=== PATIENT | female | born 1940 | race Caucasian/White ===

== ENCOUNTER → 2016-06-22 | Outpatient (CLI) | payer MEDICARE ==
[~2016-06-22] MED LIST: ALBUAER3 INH; AMIO200T PO; CARD120T4 PO; CART240C4 PO; CLON.2T T-DERMAL; CLON0.1D T-DERMAL; CLON0.3D TD; DOCU1CAP39 PO; ENAL20TA PO; ENAL20TA81 PO; FURO1TAB62 PO; INSUINJ3 SQ; INSULIN PUMP; LEVA750T PO; LEVO75TA3 PO; LEVO75TA42 PO; METO100T PO; MORP1INJ45 PO; OXYC5 PO; POTA-163 PO; POTA75TA PO; SENN8.6T15 PO; SPIR50TA PO; SYMB160A INH; UMEC1AER INH; WARF-18 PO; WARF-23 PO; WARF2.5 PO
[2016-06-22 17:21] LABS: BICARBONATE 35.5 MEQ/L (21.0-32.0); POTASSIUM 3.4 MEQ/L (3.5-5.1)
== END ==
LOC: PLAB 15:18
PROVIDERS: ATTEND Internal Medicine Cardiovascular Disease
DX: I27.2 Other secondary pulmonary hypertension (principal)
CPT/HCPCS: 36415; 80048

== ENCOUNTER → 2016-07-19 | Outpatient (CLI) | payer MEDICARE ==
[2016-07-19 13:08] LABS: CREATININE RANDOM URINE LESS THAN 13 MG/DL (27-300)
[2016-07-19 13:11] LABS: HEMATOCRIT 41.2 % (35.0-46.0); MEAN CELL VOLUME 88.5 FL (80.0-100.0); MEAN CORPUSCULAR HEMOGLOBIN 29.5 PG (27.0-34.0); MEAN CORPUSCULAR HGB CONC 33.4 % (32.0-36.0); PLATELET COUNT 197 TH/MM3 (150-450); RED BLOOD COUNT 4.66 MIL/MM3 (4.00-5.30); RED CELL DISTRIBUTION WIDTH 16.5 % (11.6-17.2); REVIEW FLAG FINAL; WHITE BLOOD COUNT 4.9 TH/MM3 (4.0-11.0)
[2016-07-19 13:18] LABS: MICROALBUMIN/CREAT RATIO RAND 1000 MG/G CRE (0-30)
[2016-07-19 13:40] LABS: ANION GAP 4 MEQ/L (5-15); AST (GOT) 41 U/L (15-37); BICARBONATE 33.2 MEQ/L (21.0-32.0); BLOOD UREA NITROGEN 14 MG/DL (7-18); CHLORIDE 103 MEQ/L (98-107); GLOMERULAR FILTRATION RATE 90 ML/MIN (>89); GLUCOSE,FASTING 140 MG/DL (74-99); POTASSIUM 3.6 MEQ/L (3.5-5.1); SODIUM (NA) 140 MEQ/L (136-145)
[2016-07-19 13:46] LABS: ALKALINE PHOSPHATASE 231 U/L (45-117); ALT (GPT) 43 U/L (10-53); HDL CHOLESTEROL 115.5 MG/DL (40.0-60.0); LDL CHOLESTEROL 93 MG/DL (0-99); LDL CHOLESTEROL DIRECT 95 MG/DL (0-99); TOTAL BILIRUBIN ADULT 0.5 MG/DL (0.2-1.0)
[2016-07-19 13:52] LABS: FREE T4 1.25 NG/DL (0.76-1.46)
[2016-07-19 13:55] LABS: HEMOGLOBIN A1a 1.2 %; HEMOGLOBIN A1b 0.8 %; HEMOGLOBIN Ao 81.2 %; HEMOGLOBIN F 1.4 %; HEMOGLOBIN LA1C 2.3 %; HEMOGLOBIN P3 4.1 %
== END ==
LOC: PLAB 09:32
PROVIDERS: ATTEND Internal Medicine Endocrinology, Diabetes & Metabolism
DX: E11.65 Type 2 diabetes mellitus with hyperglycemia (principal); E03.9 Hypothyroidism, unspecified; I10 Essential (primary) hypertension; E78.5 Hyperlipidemia, unspecified
CPT/HCPCS: 36415; 80053; 80061; 82043; 83036; 83721; 84439; 84443; 85027

== ENCOUNTER → 2016-07-27 | Outpatient (CLI) | payer MEDICARE ==
[2016-07-27 14:19] LABS: CREATININE RANDOM URINE LESS THAN 13 MG/DL (27-300)
[2016-07-27 14:28] LABS: MICROALBUMIN/CREAT RATIO RAND 900 MG/G CRE (0-30)
== END ==
LOC: PLAB 10:14
PROVIDERS: ATTEND Internal Medicine
DX: E11.65 Type 2 diabetes mellitus with hyperglycemia (principal)
CPT/HCPCS: 82043

== ENCOUNTER 2016-09-05 20:35 | Inpatient (IN) | payer MEDICARE ==
[~2016-09-05] VITALS: Ht 172.7 cm; Wt 73.4 kg
[2016-09-05 20:04] VITALS: PULSE 84
[~2016-09-05 20:35] MED LIST changes: -ALBUAER3 INH; -AMIO200T PO; -CARD120T4 PO; -CLON.2T T-DERMAL; -CLON0.1D T-DERMAL; -ENAL20TA PO; -FURO1TAB62 PO; -INSUINJ3 SQ; -LEVA750T PO; -LEVO75TA3 PO; -METO100T PO; -POTA-163 PO; -POTA75TA PO; -SPIR50TA PO; -UMEC1AER INH; -WARF-18 PO; -WARF-23 PO
[2016-09-05 20:43] VITALS: BP 172/80; PULSE 108; RESP 18; TEMP 98.9; O2SAT 94
[2016-09-05] MEDS ORDERED: ENAL20TA PO (21:45)
[2016-09-05] MEDS ORDERED: WARF-18 PO (21:45)
[2016-09-05] MEDS ORDERED: LEVO75TA3 PO (21:45)
[2016-09-05] MEDS ORDERED: CLON0.1D T-DERMAL (21:45)
[2016-09-05] MEDS ORDERED: UMEC1AER INH (21:45)
[2016-09-05] MEDS ORDERED: CARD120T4 PO (21:45)
[2016-09-05] MEDS ORDERED: FURO1TAB62 PO (21:49)
[2016-09-05] MEDS ORDERED: METO100T PO (21:49)
[2016-09-05] MEDS ORDERED: POTA75TA PO (21:49)
[2016-09-05] MEDS ORDERED: ALBUAER3 INH (21:49)
[2016-09-05 21:55] VITALS: BP 165/71; PULSE 89; O2SAT 93; O2SAT 96
[2016-09-05] MEDS ORDERED: SODIUM CHLOR 0.9% 1000 ML INJ 1,000 ML IV ONE ×2 (22:19→22:49)
[2016-09-05] MEDS ORDERED: SODIUM CHLORIDE 0.9% FLUSH 10 ML FLUSH IVF PRN (22:30)
[2016-09-05] MEDS ORDERED: ONDANSETRON HCL 4 MG/2 ML VIAL IV PUSH ONE ×2 (22:30→23:30)
[2016-09-05 22:44] LABS: BASOPHIL % 0.1 % (0.0-2.0); EOSINOPHIL % 0.1 % (0.0-4.0); HEMATOCRIT 42.5 % (35.0-46.0); HEMO FLAGS DIFF FINAL; LYMPH % 10.9 % (9.0-44.0); LYMPHOCYTE # 0.6 TH/MM3 (1.0-4.8); MEAN CELL VOLUME 89.9 FL (80.0-100.0); MEAN CORPUSCULAR HEMOGLOBIN 29.2 PG (27.0-34.0); MEAN CORPUSCULAR HGB CONC 32.4 % (32.0-36.0); MONO % 15.6 % (0.0-8.0); NEUT % 73.3 % (16.0-70.0); PLATELET COUNT 152 TH/MM3 (150-450); RED BLOOD COUNT 4.73 MIL/MM3 (4.00-5.30); RED CELL DISTRIBUTION WIDTH 14.6 % (11.6-17.2); WHITE BLOOD COUNT 5.5 TH/MM3 (4.0-11.0)
--- NOTE | 2016-09-05 22:48 | PD ---
HPI Chief Complaint: GI Complaint Time Seen by Provider: 22:19 Travel History International Travel<30 days: Yes Contact w/Intl Traveler<30days: Yes ([facility]) Name of Country Traveled to: [facility] [place] Traveled to known affect area: No History of Present Illness HPI 75-year-old female presents to the emergency department for complaint of nausea vomiting and poor oral intake along with dry heaves since Tuesday evening. Patient just returned home from a cruise today. Patient states that she is diabetic and has noted that her blood sugars have been running around 240 but she is spilling ketones in her urine. Patient does use an insulin pump. Patient denies fever chills or abdominal pain. Patient's had no chest pain or shortness of breath or pleuritic pain. Patient does not report any new lower extremity pain or swelling. Patient states symptoms began after eating lobster on Tuesday evening. reports he ate the same food and was fine without any symptoms. Patient denies hematemesis coffee-ground emesis or bilious emesis. Patient also denies any change in bowel habits or diarrhea. PFSH Past Medical History Narrative Medical Diabetes COPD atrial fibrillation with warfarin therapy hypothyroidism cardiac ablation appendectomy breast augmentation hysterectomy hand surgery alcohol use ; nursing notes reviewed Hx Anticoagulant Therapy: Yes Atrial Fibrillation: Yes Cardiovascular Problems: Yes (A FIB) COPD: Yes Diabetes: Yes (insulin pump) Patient Takes Glucophage: No Diminished Hearing: No Endocrine: Yes Genitourinary: No Hiatal Hernia: No Hypertension: Yes Immune Disorder: No Medical other: Yes (pt use oxygen at home 2lts hs.) Musculoskeletal: No Neurologic: No Reproductive: No Respiratory: No Thyroid Disease: Yes Menopausal: Yes Past Surgical History Appendectomy: Yes Cardiac Surgery: Yes (ablasion a fib) Gynecologic Surgery: Yes (BREAST AUGMENTATION) Hysterectomy: Yes Tonsillectomy: Yes Other Surgery: Yes (NUMEROUS HAND SURGERIES FOR TRIGGER FINGER - BILAT. SHOULDER SURGERIES ) Social History Alcohol Use: Yes (WINE DAILY) Tobacco Use: No (never) Substance Use: No Allergies-Medications (Allergen,Severity, Reaction): Coded Allergies: Aspirin (Verified Allergy, Severe, SWELLING OF THE FACE, 09/05/16) Ambien (Verified Allergy, Intermediate, Confusion, 09/05/16) Ticlid (Verified Allergy, Intermediate, CELLULITIS, 09/05/16) Reported Meds & Prescriptions Reported Meds & Active Scripts Active Reported Proair Hfa 8.5 GM Inh (Albuterol Sulfate) 90 Mcg/Act Aer 2 Puff INH Q4-6H PRN 108 mcg/actuation Metoprolol Tartrate 100 Mg Tab 100 Mg PO BID Lasix (Furosemide) 20 Mg Tab 20 Mg PO DAILY Potassium 75 Mg Tab 20 Meq PO Warfarin 2.5 Mg Tab 2.5 Mg PO DAILY Levothyroxine (Levothyroxine Sodium) 75 Mcg Tab 75 Mcg PO DAILY Enalapril (Enalapril Maleate) 20 Mg Tab 20 Mg PO DAILY Cardizem (Diltiazem HCl) 120 Mg Tab 240 Mg PO BID Anoro Ellipta Inh (Umeclidinium/Vilanterol) 62.5-25 Mcg/Act Aero 1 Puff INH DAILY Clonidine 168 HR Patch (Clonidine HCl) 0.1 Mg/24 Hr Patch 1 Patch T-DERMAL Q7D [Insulin Pump] Review of Systems Except as stated in HPI: all other systems reviewed are Neg General / Constitutional: No: Fever, Chills HENT: No: Congestion Cardiovascular: No: Chest Pain or Discomfort Respiratory: No: Shortness of Breath Gastrointestinal: Positive: Nausea, Vomiting, No: Diarrhea, Abdominal Pain Genitourinary: No: Dysuria, Flank Pain Musculoskeletal: No: Myalgias Skin: No Rash Neurologic: No: Weakness Psychiatric: No: Anxiety Endocrine: No: Heat Intolerance Hematologic/Lymphatic: No: Easy Bruising Physical Exam Narrative GENERAL: Well-developed well-nourished female in no acute distress no respiratory distress SKIN: Warm and dry. HEAD: Normocephalic. EYES: No scleral icterus. No injection or drainage. NECK: Supple, trachea midline. No JVD or lymphadenopathy. CARDIOVASCULAR: Regular rate and rhythm without murmurs, gallops, or rubs. RESPIRATORY: Breath sounds equal bilaterally. No accessory muscle use. GASTROINTESTINAL: Abdomen soft, non-tender, nondistended. MUSCULOSKELETAL: No cyanosis, or edema. BACK: Nontender without obvious deformity. No CVA tenderness. Data Data Last Documented VS Vital Signs Date Time Temp Pulse Resp B/P Pulse Ox O2 Delivery O2 Flow Rate FiO2 09/06/16 00:18 96 Nasal Cannula 2.00 09/05/16 21:55 89 165/71 09/05/16 20:43 98.9 18 Orders Electrocardiogram (09/05/16 22:19) Complete Blood Count With Diff (09/05/16 22:19) Comprehensive Metabolic Panel (09/05/16 22:19) Magnesium (Mg) (09/05/16 22:19) Beta Hydroxybutyrate (Acetone) (09/05/16 22:19) Lactic Acid (09/05/16 22:19) Urinalysis - C+S If Indicated (09/05/16 22:19) Chest, Single Ap (09/05/16 22:19) Blood Glucose (09/05/16 22:19) Ecg Monitoring (09/05/16 22:19) Iv Access Insert/Monitor (09/05/16 22:19) Oximetry (09/05/16 22:19) NPO (09/05/16 22:19) Sodium Chlor 0.9% 1000 Ml Inj (Ns 1000 M (09/05/16 22:19) Sodium Chlor 0.9% 1000 Ml Inj (Ns 1000 M (09/05/16 22:49) Sodium Chloride 0.9% Flush (Ns Flush) (09/05/16 22:30) Troponin I (09/05/16 22:19) Lipase (09/05/16 22:19) Ondansetron Inj (Zofran Inj) (09/05/16 22:30) Prothrombin Time / Inr (Pt) (09/05/16 23:21) Potassium Chloride (Kcl) (09/05/16 23:30) Ondansetron Inj (Zofran Inj) (09/05/16 23:30) Potassium Chlor 10 Meq Premix (Kcl 10 Me (09/05/16 23:30) Albuterol-Ipratropium Neb (Duoneb Neb) (09/06/16 00:15) Furosemide Inj (Lasix Inj) (09/06/16 00:15) Metoclopramide Inj (Reglan Inj) (09/06/16 00:15) Enalapril (Vasotec) (09/06/16 00:15) Warfarin (Coumadin) (09/06/16 00:15) Admit Order (Ed Use Only) (09/06/16 ) ^ Saline Lock (09/06/16 00:25) Resp Oxygen Nicholas C Titrat 1-4 L (09/06/16 ) ^ Notify Dr: Other (09/06/16 00:25) Sodium Chloride 0.9% Flush (Ns Flush) (09/06/16 09:00) Sodium Chloride 0.9% Flush (Ns Flush) (09/06/16 00:30) Labs Laboratory Tests Test 09/05/16 21:55 White Blood Count 5.5 TH/MM3 Red Blood Count 4.73 MIL/MM3 Hemoglobin 13.8 GM/DL Hematocrit 42.5 % Mean Corpuscular Volume 89.9 FL Mean Corpuscular Hemoglobin 29.2 PG Mean Corpuscular Hemoglobin 32.4 % Concent Red Cell Distribution Width 14.6 % Platelet Count 152 TH/MM3 Mean Platelet Volume 8.1 FL Neutrophils (%) (Auto) 73.3 % Lymphocytes (%) (Auto) 10.9 % Monocytes (%) (Auto) 15.6 % Eosinophils (%) (Auto) 0.1 % Basophils (%) (Auto) 0.1 % Neutrophils # (Auto) 4.0 TH/MM3 Lymphocytes # (Auto) 0.6 TH/MM3 Monocytes # (Auto) 0.9 TH/MM3 Eosinophils # (Auto) 0.0 TH/MM3 Basophils # (Auto) 0.0 TH/MM3 CBC Comment DIFF FINAL Differential Comment Prothrombin Time 18.8 SEC Prothromb Time International 1.7 RATIO Ratio Sodium Level 135 MEQ/L Potassium Level 3.0 MEQ/L Chloride Level 93 MEQ/L Carbon Dioxide Level 31.5 MEQ/L Anion Gap 11 MEQ/L Blood Urea Nitrogen 12 MG/DL Creatinine 0.69 MG/DL Estimat Glomerular Filtration 83 ML/MIN Rate Random Glucose 233 MG/DL Lactic Acid Level 1.4 mmol/L Calcium Level 8.4 MG/DL Magnesium Level 1.4 MG/DL Total Bilirubin 0.8 MG/DL Aspartate Amino Transf 37 U/L (AST/SGOT) Alanine Aminotransferase 58 U/L (ALT/SGPT) Alkaline Phosphatase 356 U/L Troponin I 0.02 NG/ML Total Protein 6.6 GM/DL Albumin 3.1 GM/DL Lipase 54 U/L B-Hydroxybutyrate 0.95 MMOL/L MDM Medical Decision Making Medical Screen Exam Complete: Yes Emergency Medical Condition: Yes Medical Record Reviewed: Yes Interpretation(s) EKG atrial fibrillation rate [address] elevation or injury pattern change QS septally age-indeterminate. Last Impressions Chest X-Ray 09/05/16 0453 Signed Impressions: Service Date/Time: Monday, September 05, 2016 22:40 - CONCLUSION: Congestive heart failure with bilateral pleural effusions, left greater than right. Otis West MD CBC & BMP Diagram 09/05/16 21:55 Differential Diagnosis Dehydration, DKA, electrolyte disturbance, gastroenteritis, food borne illness, ACS, [place], pancreatitis, cholecystitis Narrative Course Patient placed on monitor IV access obtained specimens collected and sent for resulting EKG ordered which showed patient to be in atrial fibrillation with controlled ventricular rate no acute ST elevation; IV fluids administered 1 L bolus x 2 along with Zofran 4 mg IV Patient continues to complain of nausea after Zofran 4 mg IV additional Zofran administered; CBC is automated differential values grossly in normal range except for by automated differential 73% neutrophils and a monocytosis Chemistries remarkable for hypokalemia of 3.0 mild hypomagnesemia 1.4 and mild hypocalcemia of 8.4 with normal bicarbonate and anion gap and be in a creatinine random glucose 233; waiting for urinalysis and beta hydroxybutyric acid will reassess blood sugar after IV fluid hydration. Patient ordered to have oral potassium replacement 40 mEq along with supplemental IV potassium replacement 10 mEq every hour 3 LFTs resulted and patient identified to have elevated alkaline phosphatase Troponin I is 0.02, not elevated Patient reassessed lung sounds clear but review of chest x-ray reveals vascular congestion and left pleural effusion; has been reports patient has had pleural effusions and has had undergo thoracentesis and pleurodesis. Patient reports no complaint of shortness of breath but typically requires supplemental oxygen at night for her sleep apnea 2 L/m. After review of chest x-ray with basket congestion; Lasix 40 mg IV administered. Patient also given evening medications Coumadin 5 mg and enalapril 20 mg by mouth. Patient administered DuoNeb updraft 1 as patient reports occasional wheezing. Critical Care Narrative Aggregate critical care time was 40 minutes. Time to perform other separately billable procedures was not included in the critical care time. My time did not include minutes spent treating any other patients simultaneously or on activities that did not directly contribute to the patient's treatment. The services I provided to this patient were to treat and/or prevent clinically significant deterioration that could result in: DKA, arrhythmia, cardiopulmonary arrest, I provided critical care services requiring my management, as noted below: Chart data review, documentation time, medication orders and management, vital sign assessments/reviewing monitor data, ordering and reviewing lab tests, ordering and interpreting/reviewing x-rays and diagnostic studies, care of the patient and discussion of the patient with the admitting physicians. Physician Communication Physician Communication call placed to [facility] service for admission case discussed with Dr Gomez for admission Diagnosis Primary Impression: Vomiting Qualified Code: R11.2 - Non-intractable vomiting with nausea, unspecified vomiting type Additional Impressions: Diabetes CHF (congestive heart failure) Admitting Information Admitting Physician Requests: Admit Tiffanie Rios MD Sep 05, 2016 22:48
--- NOTE | 2016-09-05 22:51 | RADHPO ---
EXAM DATE/TIME: 09/05/2016 22:40 [facility] COMPARISON: No previous studies available for comparison. INDICATIONS : Shortness of breath with nausea. MEDICAL HISTORY : A fib. Hypertension. Chronic obstructive pulmonary disease. thyroid disease, diabetes. SURGICAL HISTORY : None. ENCOUNTER: Initial ACUITY: 1 day PAIN SCORE: 0/10 LOCATION: Bilateral chest FINDINGS: Heart size is mildly enlarged. There is a mild edema pattern with bilateral pleural effusions, left g reater than right and probable basilar atelectasis. No pneumothorax. CONCLUSION: Congestive heart failure with bilateral pleural effusions, left greater than right. Otis West MD on September 05, 2016 at 22:49 Board Certified Radiologist. This report was verified electronically.
[2016-09-05 22:59] LABS: CHLORIDE 93 MEQ/L (98-107); SODIUM (NA) 135 MEQ/L (136-145)
[2016-09-05 23:02] LABS: ANION GAP 11 MEQ/L (5-15); BICARBONATE 31.5 MEQ/L (21.0-32.0); BLOOD UREA NITROGEN 12 MG/DL (7-18); MAGNESIUM 1.4 MG/DL (1.5-2.5)
[2016-09-05 23:05] LABS: ALT (GPT) 58 U/L (10-53); AST (GOT) 37 U/L (15-37); GLOMERULAR FILTRATION RATE 83 ML/MIN (>89)
[2016-09-05 23:06] LABS: TOTAL BILIRUBIN ADULT 0.8 MG/DL (0.2-1.0)
[2016-09-05 23:08] LABS: ALKALINE PHOSPHATASE 356 U/L (45-117)
[2016-09-05 23:18] LABS: BETA-HYDROXYBUTYRATE 0.95 MMOL/L (0.00-0.39)
[2016-09-05] MEDS ORDERED: POTASSIUM CHLORIDE 20 MEQ CONTROLLED RELEASE TAB PO ONE (23:30)
[2016-09-05] MEDS: POTASSIUM CHLOR 10 MEQ PREMIX 100 ML IV SCH (23:43)
[2016-09-05 23:46] LABS: INTERNATIONAL NORMALIZED RATIO 1.7 RATIO; PROTHROMBIN TIME - PATIENT 18.8 SEC (9.8-11.6)
[2016-09-06] VITALS (12 sets, daily range): BP systolic 131–196; BP diastolic 55–105; PULSE 84–135; RESP 16–20; TEMP 98.5–100.8; O2SAT 73–97
[2016-09-06] MEDS ORDERED: WARFARIN SOD 5 MG TAB PO ONE (00:15)
[2016-09-06] MEDS ORDERED: METOCLOPRAMIDE HCL 10 MG/2 ML VIAL IV PUSH ONE (00:15)
[2016-09-06] MEDS ORDERED: RESP: ALBUTEROL 2.5 MG/IPRATROPIUM 0.5 MG NEB (SCH) NEB ONE (00:15)
[2016-09-06] MEDS ORDERED: FUROSEMIDE 40 MG/4 ML VIAL IV PUSH ONE (00:15)
[2016-09-06] MEDS ORDERED: ENALAPRIL MALEATE 10 MG TAB PO ONE (00:15)
[2016-09-06] MEDS ORDERED: SODIUM CHLORIDE 0.9% FLUSH 10 ML FLUSH IVF PRN (00:30)
[2016-09-06 00:45] LABS: BLOOD, URINE TRACE (NEG); GLUCOSE,URINE 100 mg/dL (NEG); KETONE, URINE 15 mg/dL (NEG); NITRITE,URINE NEG (NEG)
[2016-09-06] MEDS: POTASSIUM CHLOR 10 MEQ PREMIX 100 ML IV SCH ×2 (00:46→02:00)
[2016-09-06 00:51] LABS: HYALINE CAST, URINE 0-2 /lpf (RARE); MUCUS URINE FEW /lpf (OCC); SQUAMOUS EPITHELIAL CELL URINE 0-5 /hpf (0-5); URINE COLOR YELLOW (YELLW/STRAW)
[2016-09-06 00:52] LABS: BACTERIA, URINE FEW /hpf; COMMENT (UR) CULT NOT INDICATED; CULTURE IF INDICATED CULT NOT INDICATED; WBC, URINE 0-2 /hpf (0-5)
[2016-09-06] MEDS ORDERED: DEXTROSE 50% IN WATER 50 ML VIAL(D50) IV PUSH PRN (01:00)
[2016-09-06] MEDS ORDERED: BISACODYL 10 MG SUPP PR PRN (01:00)
[2016-09-06] MEDS ORDERED: SODIUM CHLORIDE 0.9% FLUSH 10 ML FLUSH IV FLUSH PRN (01:00)
[2016-09-06] MEDS ORDERED: GLUCAGON 1 MG/ML VIAL OTHER PRN (01:00)
[2016-09-06] MEDS: LEVOTHYROXINE SODIUM 75 MCG TAB PO SCH (05:10)
[2016-09-06] MEDS ORDERED: INSULIN ASPART SUPPLEMENTAL SCALE SQ SCH (07:00)
[2016-09-06] MEDS: METOPROLOL TARTRATE 100 MG TAB PO SCH ×2 (08:47→19:44)
[2016-09-06] MEDS: SODIUM CHLORIDE 0.9% FLUSH 10 ML FLUSH IV FLUSH SCH ×2 (08:48→19:38)
[2016-09-06] MEDS: DILTIAZEM-CD 240 MG CAP ER PO SCH (08:48)
[2016-09-06] MEDS: ENALAPRIL MALEATE 10 MG TAB PO SCH (08:48)
[2016-09-06] MEDS ORDERED: SODIUM CHLORIDE 0.9% FLUSH 10 ML FLUSH IV FLUSH SCH (09:00)
[2016-09-06] MEDS ORDERED: FUROSEMIDE 20 MG TAB PO SCH (09:00)
[2016-09-06 10:18] LABS: BICARBONATE 32.2 MEQ/L (21.0-32.0); MAGNESIUM 1.3 MG/DL (1.5-2.5)
[2016-09-06] MEDS: ONDANSETRON HCL 4 MG/2 ML VIAL IVP PRN (10:44)
--- NOTE | 2016-09-06 14:42 | HHI.HP ---
HPI Service [facility] Primary Care Physician Yu Pavon MD Admission Diagnosis Uncontrolled DM; CHF; AFib Diagnoses: Chief Complaint: Decreased appetite Nausea/vomiting/dry heaves Elevated blood sugar Travel History International Travel<30 Days: No Contact w/Intl Traveler <30 Da: [place] Traveled to: [facility] Traveled to Known Affected Are: No History of Present Illness This is a 75-year-old female with past medical history significant for insulin dependent diabetes, atrial fibrillation, pulmonary hypertension, hypothyroidism and POLO on night time oxygen who presents to [facility] ED with complaints of poor oral intake, nausea, vomiting and dry heaves for 2 days. Patient states that her symptoms began shortly after she ate lobster while she was on a cruise Tuesday evening. She denies any blood or bile in the vomitus. She states her had the same meal and has not been ill. She reports associated shortness of breath. She denies any chest pain or abdominal pain. She states that her blood sugars have been running high for her around 240 and she has been spilling ketones in her urine. She does utilize insulin pump. Patient denies any diarrhea or constipation. In the ED, patient's BP is elevated 172/80, temp 98.9 and HR 108. White count is well within normal limits at 5.5. She has hypokalemia and hypomagnesemia. Her blood sugar was 219. Review of Systems Except as stated in HPI: all other systems reviewed are Neg (10 point review of systems completed and all pertinent stated in history of present illness) Past Family Social History Past Medical History Insulin-dependent diabetes managed with a pain pump Atrial fibrillation, on Coumadin Pulmonary hypertension History of cellulitis POLO, on nighttime oxygen Hypertension Hypothyroidism Past Surgical History Appendectomy Cardiac ablation 2 Hysterectomy Breast augmentation bilateral shoulder surgery Hand surgery Tonsillectomy Reported Medications Proair Hfa 8.5 GM Inh (Albuterol Sulfate) 90 Mcg/Act Aer 2 Puff INH Q4-6H PRN 108 mcg/actuation Metoprolol Tartrate 100 Mg Tab 100 Mg PO BID Lasix (Furosemide) 20 Mg Tab 20 Mg PO DAILY Potassium 75 Mg Tab 20 Meq PO Warfarin 2.5 Mg Tab 2.5 Mg PO DAILY Levothyroxine (Levothyroxine Sodium) 75 Mcg Tab 75 Mcg PO DAILY Enalapril (Enalapril Maleate) 20 Mg Tab 20 Mg PO DAILY Cardizem (Diltiazem HCl) 120 Mg Tab 240 Mg PO BID Anoro Ellipta Inh (Umeclidinium/Vilanterol) 62.5-25 Mcg/Act Aero 1 Puff INH DAILY Clonidine 168 HR Patch (Clonidine HCl) 0.1 Mg/24 Hr Patch 1 Patch T-DERMAL Q7D [Insulin Pump] Allergies: Coded Allergies: Aspirin (Verified Allergy, Severe, SWELLING OF THE FACE, 09/05/16) Ambien (Verified Allergy, Intermediate, Confusion, 09/05/16) Ticlid (Verified Allergy, Intermediate, CELLULITIS, 09/05/16) Active Ordered Medications Current Medications Medications (Trade) Dose Ordered Sig/Jose Juan Route Start Time Stop Time Status Last Admin (D50w (Vial) Inj) 25 ml UNSCH PRN IV PUSH 09/06/16 01:00 (Glucagon Inj) 1 mg UNSCH PRN OTHER 09/06/16 01:00 (NS Flush) 2 ml UNSCH PRN IV FLUSH 09/06/16 01:00 (NS Flush) 2 ml BID IV FLUSH 09/06/16 09:00 09/06/16 08:48 (Zofran Inj) 4 mg Q6H PRN IVP 09/06/16 01:00 09/06/16 10:44 (Dulcolax Supp) 10 mg DAILY PRN AR 09/06/16 01:00 (Tylenol) 650 mg Q6H PRN PO 09/06/16 01:00 ([place] 5-325 Mg) 1 tab Q4H PRN PO 09/06/16 01:00 ([place] 10-325 Mg) 1 tab Q4H PRN PO 09/06/16 01:00 (Vasotec) 20 mg DAILY PO 09/06/16 09:00 09/06/16 08:48 (Lasix) 20 mg DAILY PO 09/06/16 09:00 09/06/16 08:47 (Synthroid) 75 mcg DAILY@0600 PO 09/06/16 06:00 09/06/16 05:10 (Lopressor) 100 mg BID PO 09/06/16 09:00 09/06/16 08:47 (Coumadin) 2.5 mg DAILY@1600 PO 09/06/16 16:00 (Cardizem Cd) 480 mg DAILY PO 09/06/16 09:00 09/06/16 08:48 (Coumadin Booklet) 1 ONCE ONCE XX 09/06/16 16:00 09/06/16 16:01 Family History Family medical history significant for hypertension and diabetes Social History Patient denies any tobacco use Admits to wine daily Denies any illicit drug use Physical Exam Vital Signs Vital Signs Date Time Temp Pulse Resp B/P Pulse Ox O2 Delivery O2 Flow Rate FiO2 09/06/16 12:00 100.8 97 20 157/80 90 09/06/16 08:55 100.2 135 20 172/92 73 09/06/16 08:45 126 16 188/105 97 09/06/16 07:00 98.6 120 16 196/105 97 Room Air 09/06/16 07:00 16 09/06/16 05:11 95 181/96 97 Nasal Cannula 2 09/06/16 00:50 107 148/81 94 Nasal Cannula 2 09/06/16 00:18 96 Nasal Cannula 2.00 09/06/16 00:06 95 Nasal Cannula 2 09/05/16 21:55 89 165/71 96 Room Air 09/05/16 21:55 93 Room Air 09/05/16 20:43 98.9 108 18 172/80 94 Physical Exam GENERAL: This is a well-nourished, well-developed patient, in no apparent distress. SKIN: No rashes, ecchymoses or lesions. Cool and dry. HEAD: Atraumatic. Normocephalic. No temporal or scalp tenderness. EYES: Pupils equal round and reactive. Extraocular motions intact. No scleral icterus. No injection or drainage. ENT: Nose without bleeding, purulent drainage or septal hematoma. Throat without erythema, tonsillar hypertrophy or exudate. Uvula midline. Airway patent. NECK: Trachea midline. No JVD or lymphadenopathy. Supple, nontender, no meningeal signs. CARDIOVASCULAR: Regular rate and rhythm without murmurs, gallops, or rubs. RESPIRATORY: Clear to auscultation. Breath sounds equal bilaterally. No wheezes , rales, or rhonchi. GASTROINTESTINAL: Abdomen soft, non-tender, nondistended. No hepato-splenomegaly , or palpable masses. No guarding. MUSCULOSKELETAL: Extremities without clubbing, cyanosis, or edema. No joint tenderness, effusion, or edema noted. No calf tenderness. Negative Homans sign bilaterally. NEUROLOGICAL: Awake and alert. Cranial nerves II through XII intact. Motor and sensory grossly within normal limits. Five out of 5 muscle strength in all muscle groups. Normal speech. Laboratory Laboratory Tests Test 09/05/16 09/06/16 09/06/16 09/06/16 21:55 00:35 09:28 12:15 White Blood Count 5.5 Red Blood Count 4.73 Hemoglobin 13.8 Hematocrit 42.5 Mean Corpuscular Volume 89.9 Mean Corpuscular Hemoglobin 29.2 Mean Corpuscular Hemoglobin 32.4 Concent Red Cell Distribution Width 14.6 Platelet Count 152 Mean Platelet Volume 8.1 Neutrophils (%) (Auto) 73.3 Lymphocytes (%) (Auto) 10.9 Monocytes (%) (Auto) 15.6 Eosinophils (%) (Auto) 0.1 Basophils (%) (Auto) 0.1 Neutrophils # (Auto) 4.0 Lymphocytes # (Auto) 0.6 Monocytes # (Auto) 0.9 Eosinophils # (Auto) 0.0 Basophils # (Auto) 0.0 CBC Comment DIFF FINAL Differential Comment Prothrombin Time 18.8 Prothromb Time International 1.7 Ratio Sodium Level 135 138 Potassium Level 3.0 3.0 Chloride Level 93 95 Carbon Dioxide Level 31.5 32.2 Anion Gap 11 11 Blood Urea Nitrogen 12 9 Creatinine 0.69 0.59 Estimat Glomerular Filtration 83 99 Rate Random Glucose 233 225 Lactic Acid Level 1.4 Calcium Level 8.4 7.6 Magnesium Level 1.4 1.3 Total Bilirubin 0.8 Aspartate Amino Transf 37 (AST/SGOT) Alanine Aminotransferase 58 (ALT/SGPT) Alkaline Phosphatase 356 Troponin I 0.02 0.03 0.05 Total Protein 6.6 Albumin 3.1 Lipase 54 B-Hydroxybutyrate 0.95 Urine Color YELLOW Urine Turbidity CLEAR Urine pH 6.0 Urine Specific [place] 1.016 Urine Protein 100 Urine Glucose (UA) 100 Urine Ketones 15 Urine Occult Blood TRACE Urine Nitrite NEG Urine Bilirubin NEG Urine Leukocyte Esterase NEG Urine RBC 4-9 Urine WBC 0-2 Urine Squamous Epithelial 0-5 Cells Urine Bacteria FEW Urine Hyaline Casts 0-2 Urine Mucus FEW Microscopic Urinalysis Comment CULT NOT INDICATED Result Diagram: 09/05/165 09/06/16 0928 Imaging Last 48 hours Impressions Chest X-Ray 09/05/169 Signed Impressions: Service Date/Time: Monday, September 05, 2016 22:40 - CONCLUSION: Congestive heart failure with bilateral pleural effusions, left greater than right. Otis West MD Assessment and Plan Assessment and Plan 75-year-old female with past medical history significant for insulin dependent diabetes, atrial fibrillation, pulmonary hypertension, hypothyroidism and POLO on night time oxygen who presents to [facility] ED with complaints of poor oral intake, nausea, vomiting and dry heaves for 2 days. Suspected gastroenteritis - fluids given in ED - improved since presentation - Diet ordered. Will monitor how patient tolerates and adjust accordingly - IV zofran prn CHF exacerbation in patient with h/o pulmonary HTN - CXR personally interpreted revealing findings c/w CHF and bilateral pleural effusions - hold home Lasix. IV Lasix 20mg BID - monitor electrolytes - monitor for e/o fluid overload - strict I&Os - daily weights - Na/fluid restrictions Atrial fibrillation - rate controlled - resume home Warfarin and Diltiazem - monitor PT/INR - pharmacy dosing requested - monitor on telemetry Hypertension - resume home medications - monitor BP - adjust treatment as indicated Electrolyte imbalance - K 3.0, Mag 1.3 - replenish potassium and magnesium - am labs to monitor response IDDM - patient will continue with her insulin pump - accuchecks - ISS - patient to manage with pump COPD - resume home bronchodilators - Duonebs prn - supplemental oxygen Hypothyroidism - resume home Levothyroxine - obtain TSH level DVT prophylaxis - resume home Coumadin Written by Alexandra Liz PA-C acting as scribe for Dr. Lindquist on 09/06/16 at 10:25. All or portions of this note were transcribed by scribe Alexandra Liz PA-C. I, Dr. Francisco Javier Lindquist personally performed the history, physical exam, and medical decision making; and confirmed the accuracy of the information in the transcribed note. Authenticated by Dr. Francisco Javier Lindquist on 09/06/16 at 15:08. Alexandra Liz Sep 06, 2016 14:42 Francisco Javier Lindquist MD Sep 06, 2016 15:08
[2016-09-06] MEDS ORDERED: POTASSIUM CHLORIDE INJ 20 MEQ in SODIUM CHLOR 0.9% 1000 ML INJ 1,000 ML IV SCH (15:00)
[2016-09-06] MEDS ORDERED: SODIUM CHLOR 0.9% 1000 ML INJ 1,000 ML IV SCH (15:00)
[2016-09-06] MEDS ORDERED: POTASSIUM CHLORIDE 20 MEQ CONTROLLED RELEASE TAB PO ONE (15:00)
[2016-09-06] MEDS ORDERED: WARFARIN SOD 2.5 MG TAB PO SCH (16:00)
[2016-09-06] MEDS ORDERED: WARFARIN SOD 2.5 MG TAB PO ONE (16:00)
[2016-09-06] MEDS: FUROSEMIDE 20 MG/2 ML VIAL IV PUSH SCH ×2 (16:06→16:41)
[2016-09-06] MEDS: MAGNESIUM SULFATE 1 GM PREMIX 100 ML IV SCH ×2 (16:08→16:41)
[2016-09-06] MEDS: UMECLIDINIUM 62.5 MCG/VILANTEROL 25 MCG INHALER INH SCH (16:41)
[2016-09-06] MEDS ORDERED: POTASSIUM CHLORIDE 10 MEQ CONTROLLED RELEASE TAB PO ONE (18:30)
[2016-09-06] MEDS: ACETAMINOPHEN/HYDROcodone 325 MG/10 MG TAB PO PRN (19:45)
[2016-09-06] MEDS: RESP: ALBUTEROL 2.5 MG/IPRATROPIUM 0.5 MG NEB (PRN) NEB (21:18)
[2016-09-07] VITALS (9 sets, daily range): BP systolic 115–131; BP diastolic 59–75; PULSE 66–91; RESP 16–20; TEMP 97.2–100; O2SAT 91–98
[2016-09-07] MEDS: LEVOTHYROXINE SODIUM 75 MCG TAB PO SCH (06:17)
[2016-09-07 06:20] LABS: BASOPHIL % 0.1 % (0.0-2.0); HEMATOCRIT 40.2 % (35.0-46.0); HEMO FLAGS DIFF FINAL; LYMPH % 20.7 % (9.0-44.0); MEAN CELL VOLUME 89.4 FL (80.0-100.0); MEAN CORPUSCULAR HEMOGLOBIN 29.4 PG (27.0-34.0); MEAN CORPUSCULAR HGB CONC 32.8 % (32.0-36.0); MONO % 16.8 % (0.0-8.0); NEUT % 62.4 % (16.0-70.0); PLATELET COUNT 140 TH/MM3 (150-450); RED BLOOD COUNT 4.49 MIL/MM3 (4.00-5.30); RED CELL DISTRIBUTION WIDTH 14.3 % (11.6-17.2); WHITE BLOOD COUNT 4.9 TH/MM3 (4.0-11.0)
[2016-09-07 06:31] LABS: CHLORIDE 92 MEQ/L (98-107); POTASSIUM 3.5 MEQ/L (3.5-5.1); SODIUM (NA) 134 MEQ/L (136-145)
[2016-09-07 06:33] LABS: INTERNATIONAL NORMALIZED RATIO 2.9 RATIO; PROTHROMBIN TIME - PATIENT 33.2 SEC (9.8-11.6)
[2016-09-07 06:39] LABS: ANION GAP 10 MEQ/L (5-15); BLOOD UREA NITROGEN 15 MG/DL (7-18); MAGNESIUM 1.9 MG/DL (1.5-2.5)
[2016-09-07 06:40] LABS: ALT (GPT) 41 U/L (10-53); AST (GOT) 38 U/L (15-37)
[2016-09-07 06:42] LABS: TOTAL BILIRUBIN ADULT 0.4 MG/DL (0.2-1.0)
[2016-09-07 06:43] LABS: ALKALINE PHOSPHATASE 276 U/L (45-117); GLOMERULAR FILTRATION RATE 97 ML/MIN (>89)
[2016-09-07] MEDS: SODIUM CHLORIDE 0.9% FLUSH 10 ML FLUSH IV FLUSH SCH ×2 (09:00→21:00)
[2016-09-07] MEDS: UMECLIDINIUM 62.5 MCG/VILANTEROL 25 MCG INHALER INH SCH (09:01)
[2016-09-07] MEDS: METOPROLOL TARTRATE 100 MG TAB PO SCH ×2 (09:02→22:07)
[2016-09-07] MEDS: ENALAPRIL MALEATE 10 MG TAB PO SCH (09:02)
[2016-09-07] MEDS: FUROSEMIDE 20 MG/2 ML VIAL IV PUSH SCH ×2 (09:02→18:50)
[2016-09-07] MEDS: DILTIAZEM-CD 240 MG CAP ER PO SCH (09:02)
[2016-09-07] MEDS: RESP: ALBUTEROL 2.5 MG/IPRATROPIUM 0.5 MG NEB (PRN) NEB ×2 (10:14→20:21)
[2016-09-07] MEDS: POTASSIUM CHLORIDE 20 MEQ CONTROLLED RELEASE TAB PO SCH (12:37)
--- NOTE | 2016-09-07 12:42 | HHI.PR ---
Subjective Remarks Follow-up on patient with suspected gastroenteritis and CHF exacerbation. Patient reports that she is breathing better today. Able to tolerate a diet. No chest pain, abdominal pain or nausea or vomiting. Complains of cough. Objective Vitals Vital Signs Date Time Temp Pulse Resp B/P Pulse Ox O2 Delivery O2 Flow Rate FiO2 09/07/16 12:00 97.8 79 17 120/72 98 09/07/16 10:19 95 Nasal Cannula 2.00 09/07/16 08:00 97.2 66 18 115/65 92 09/07/16 04:00 98.4 86 18 131/71 91 09/07/16 00:00 100.0 75 16 121/73 93 09/06/16 20:45 18 09/06/16 20:25 94 Nasal Cannula 2.00 09/06/16 20:04 84 09/06/16 20:00 99.3 97 20 157/95 94 09/06/16 16:15 98.5 96 20 143/92 90 I/O 09/06/16 09/06/16 09/06/16 09/07/16 09/07/16 09/07/16 07:00 15:00 23:00 07:00 15:00 23:00 Intake Total 2300 ml 570 ml 420 ml 640 ml Output Total 100 ml Balance 2200 ml 570 ml 420 ml 640 ml Intake Oral 570 ml 420 ml 640 ml IV Total 2300 ml Output Urine Total 100 ml # Voids 1 3 1 2 # Bowel Movements 0 0 Result Diagram: 09/07/16 0515 09/07/16 0515 A/P Assessment and Plan 75-year-old female with past medical history significant for insulin dependent diabetes, atrial fibrillation, pulmonary hypertension, hypothyroidism and POLO on night time oxygen who presents to [facility] ED with complaints of poor oral intake, nausea, vomiting and dry heaves for 2 days. Suspected gastroenteritis - improved - tolerating diet - no further episodes of nausea/vomiting - IV zofran prn CHF exacerbation in patient with h/o pulmonary HTN - CXR personally interpreted revealing findings c/w CHF and bilateral pleural effusions, left greater than right - Continue IV Lasix 20mg BID - monitor electrolytes - monitor for e/o fluid overload - strict I&Os - daily weights - Na/fluid restrictions - Potassium 20meq daily - Echocardiogram ordered - no official report but large pleural effusion seen on exam by tech. Patient will likely benefit from ultrasound guided thoracocentesis but INR 2.9 today. Hold Coumadin. Recheck PT/INR in am. Will follow up on report once it is available. Atrial fibrillation - rate controlled - continue home Diltiazem - hold Coumadin for now for possible upcoming IR procedure - monitor on telemetry Hypertension - BP well controlled - continue home medications - monitor BP - adjust treatment as indicated Electrolyte imbalance - improved - K 3.05, Mag 1.9 - Continue to monitor IDDM - patient will continue with her insulin pump - accuchecks - ISS - patient to manage with pump - blood sugars fairly well controlled COPD - continue home bronchodilators - Duonebs prn - supplemental oxygen. Currently on 95% on 2LNC Hypothyroidism - continue home Levothyroxine - TSH level 0.644 DVT prophylaxis - home Coumadin on hold - SCD/MELVIN hose - up with PT Written by Alexandra Liz PA-C acting as scribe for Dr. Lindquist on 09/07/16 at 10:02. All or portions of this note were transcribed by scribe Alexandra Liz PA-C. I, Dr. Francisco Javier Lindquist personally performed the history, physical exam, and medical decision making; and confirmed the accuracy of the information in the transcribed note. Authenticated by Dr. Francisco Javier Lindquist on 09/07/16 at 14:45. Alexandra Liz Sep 07, 2016 12:42 Francisco Javier Lindquist MD Sep 07, 2016 14:45
--- NOTE | 2016-09-07 12:53 | EKG ---
Date Performed: 09/05/2016 Time Performed: 22:30:36 PTAGE: 75 years EKG: Atrial fibrillation. Poor R wave progression - probable normal variant Anterolateral ST-T c hanges are nonspecific Abnormal ECG Compared to prior tracing no significant change DOCTOR: John Rob Interpretating Date/Time 09/07/2016 12:51:00
--- NOTE | 2016-09-07 13:13 | EC ---
Study Study Date:09/07/2016 STUDY CONCLUSIONS SUMMARY - Left ventricle: The cavity size was normal. Wall thickness was normal. Systolic function was normal. The estimated ejection fraction was in the range of 50% to 55%. Wall motion was normal; there were no regional wall motion abnormalities. - Mitral valve: Mild to moderate regurgitation. - Tricuspid valve: Moderate-severe regurgitation. - Pulmonary arteries: PA peak pressure: 77mm Hg (S). If LV function is below 40, please consider prescribing an ACEI or ARB or document rationale for non-use. PROCEDURE DATA STUDY STATUS: Elective. Procedure: Transthoracic echocardiography. Image quality was good. Scanning was performed from the parasternal, apical, and subcostal acoustic windows. Study completion: The patient tolerated the procedure well. Transthoracic echocardiography. M-mode, complete 2D, complete spectral Doppler, and color Doppler. Patient status: Inpatient. CARDIAC ANATOMY LEFT VENTRICLE: The cavity size was normal. Wall thickness was normal. Systolic function was normal. The estimated ejection fraction was in the range of 50% to 55%. Wall motion was normal; there were no regional wall motion abnormalities. AORTIC VALVE: Trileaflet; mildly thickened, mildly calcified leaflets. Doppler: Transvalvular velocity was within the normal range. There was no stenosis. No regurgitation. AORTA: Aortic root: The aortic root was normal in size. MITRAL VALVE: Structurally normal valve. Doppler: Transvalvular velocity was within the normal range. There was no evidence for stenosis. Mild to moderate regurgitation. Valve area by pressure half-time: 2.82cm^2. LEFT ATRIUM: The atrium was normal in size. RIGHT VENTRICLE: The cavity size was normal. Wall thickness was normal. PULMONIC VALVE: Doppler: Transvalvular velocity was within the normal range. There was no evidence for stenosis. No regurgitation. TRICUSPID VALVE: Structurally normal valve. Doppler: Transvalvular velocity was within the normal range. Moderate-severe regurgitation. PULMONARY ARTERY: The main pulmonary artery was normal-sized. Systolic pressure was within the normal range. RIGHT ATRIUM: The atrium was normal in size. PERICARDIUM: There was no pericardial effusion. SYSTEMIC VEINS: Inferior vena cava: The vessel was normal in size. BASIC MEASUREMENTS ADULT Normal Left ventricle LV internal dimension, ED, chordal level, *38.1 mm 43-52 PLAX LV internal dimension, ES, chordal level, 29.5 mm 23-38 PLAX Fractional shortening, chordal level, PLAX *23 % >29 LV posterior wall thickness, ED 10.3 mm IVS/LVPW ratio, ED 1.15 <1.3 Ventricular septum Septal thickness, ED 11.8 mm Aortic valve Leaflet separation 16 mm 15-26 Right ventricle RV internal dimension, ED, PLAX 33 mm 19-38 BASIC MEASUREMENTS ADULT Normal Aortic valve Leaflet separation 16 mm 15-26 Aorta Root diameter, ED 28 mm 20-37 Left atrium Anterior-posterior dimension, ES 33 mm 19-40 LA/aortic root ratio 1.18 DOPPLER MEASUREMENTS ADULT Normal Main pulmonary artery Pressure, S *77 mm Hg =30 Mitral valve Pressure half-time 78 ms Valve area, pressure half-time 2.82 cm^2 Tricuspid valve Regurgitant peak velocity 408 cm/s Peak RV-RA gradient, S 67 mm Hg Maximal regurgitant velocity 408 cm/s Systemic veins Estimated CVP 10 mm Hg Right ventricle RV pressure, S *77 mm Hg <30 LEGEND: Mean values are shown as u=mean value. Asterisk (*) ibarra values outside specified normal range. Prepared and signed by Darin Villalobos [id number]
[2016-09-08] VITALS (9 sets, daily range): BP systolic 114–162; BP diastolic 61–83; PULSE 58–134; RESP 18–21; TEMP 97.5–99.5; O2SAT 90–100
[2016-09-08] MEDS: LEVOTHYROXINE SODIUM 75 MCG TAB PO SCH (06:15)
[2016-09-08 06:58] LABS: INTERNATIONAL NORMALIZED RATIO 3.8 RATIO; POTASSIUM 3.7 MEQ/L (3.5-5.1); PROTHROMBIN TIME - PATIENT 45.1 SEC (9.8-11.6)
[2016-09-08 07:03] LABS: BICARBONATE 30.8 MEQ/L (21.0-32.0); MAGNESIUM 1.8 MG/DL (1.5-2.5)
[2016-09-08] MEDS: METOPROLOL TARTRATE 100 MG TAB PO SCH ×2 (08:53→22:27)
[2016-09-08] MEDS: FUROSEMIDE 20 MG/2 ML VIAL IV PUSH SCH ×2 (08:53→17:26)
[2016-09-08] MEDS: POTASSIUM CHLORIDE 20 MEQ CONTROLLED RELEASE TAB PO SCH (08:54)
[2016-09-08] MEDS: ENALAPRIL MALEATE 10 MG TAB PO SCH (08:54)
[2016-09-08] MEDS: DILTIAZEM-CD 240 MG CAP ER PO SCH (08:54)
[2016-09-08] MEDS: UMECLIDINIUM 62.5 MCG/VILANTEROL 25 MCG INHALER INH SCH (08:55)
[2016-09-08] MEDS: SODIUM CHLORIDE 0.9% FLUSH 10 ML FLUSH IV FLUSH SCH ×2 (08:55→22:27)
--- NOTE | 2016-09-08 16:00 | HHI.PR ---
Subjective Remarks Follow-up gastroenteritis, fluid overload. Still reporting shortness of breath, cough. No chest pain. Objective Vitals Vital Signs Date Time Temp Pulse Resp B/P Pulse Ox O2 Delivery O2 Flow Rate FiO2 09/08/16 12:00 98.3 58 20 114/66 100 09/08/16 08:00 98.3 87 21 147/73 93 09/08/16 04:00 98.9 81 20 144/73 91 09/08/16 02:55 134 09/08/16 00:00 99.2 72 20 120/70 90 09/07/16 20:20 94 Nasal Cannula 3.00 09/07/16 20:03 91 09/07/16 20:00 99.6 76 20 129/59 94 09/07/16 16:00 98.2 74 18 115/75 92 I/O 09/07/16 09/07/16 09/07/16 09/08/16 09/08/16 09/08/16 07:00 15:00 23:00 07:00 15:00 23:00 Intake Total 640 ml 120 ml 60 ml 0 ml Output Total 150 ml 200 ml Balance 640 ml -30 ml -140 ml 0 ml Intake Oral 640 ml 120 ml 60 ml IV Total 0 ml 0 ml Output Urine Total 150 ml 200 ml # Voids 2 # Bowel Movements 0 0 0 Result Diagram: 09/07/16 0515 09/08/16 0545 Imaging Last Impressions Chest X-Ray 09/05/162218 Signed Impressions: Service Date/Time: Monday, September 05, 2016 22:40 - CONCLUSION: Congestive heart failure with bilateral pleural effusions, left greater than right. Otis West MD Objective Remarks General: No acute distress. Sitting up in a chair. Heart: Regular rate and rhythm. No murmur. Lungs: Bilateral crackles are noted. Breathing is nonlabored. Abdomen: Soft, nontender, nondistended. Extremities: No lower extremity edema. Psych: Alert and oriented. Procedures None Urinary Catheter: No Vascular Central Line Catheter: No A/P Assessment and Plan 1. Gastroenteritis: Improved. Patient is now tolerating her diet. Nausea and vomiting have resolved. Zofran available as needed. 2. CHF exacerbation, likely diastolic: Patient has history of pulmonary hypertension. Chest x-ray shows fluid overload with bilateral pleural effusions , left greater than right. Continue Lasix. Strict intake/output. Echocardiogram shows ejection fraction 55-60% with no regional wall motion abnormalities. There is moderate to severe tricuspid regurgitation. 3. Pleural effusion: May need thoracentesis. INR is supratherapeutic. Coumadin is on hold. Consider interventional radiology consult when INR is decreased. 4. Atrial fibrillation: Currently rate controlled. Continue diltiazem. Coumadin on hold. Monitor on telemetry. 5. Hypertension: Blood pressure is well controlled. Continue home medications. 6. Insulin-dependent diabetes mellitus: Patient has an insulin pump, which provides basal and sliding scale NovoLog. Monitor Accu-Cheks. 7. COPD: Continue bronchodilators. DuoNeb as needed. Continue supplemental oxygen. 8. Hypothyroidism: Continue Synthroid. 9. DVT prophylaxis: Coumadin on hold. INR is supratherapeutic. No reported bleeding. Francisco Javier Lindquist MD Sep 08, 2016 16:00
--- NOTE | 2016-09-08 17:58 | RADHPO ---
EXAM DATE/TIME: 09/08/2016 17:12 [facility] COMPARISON: CHEST SINGLE AP, September 05, 2016, 22:40. INDICATIONS : Shortness of breath MEDICAL HISTORY : A fib. Hypertension. Chronic obstructive pulmonary disease. thyroid disease, diabetes. SURGICAL HISTORY : None. ENCOUNTER: Subsequent ACUITY: 4 - 6 days PAIN SCORE: 0/10 LOCATION: Bilateral chest FINDINGS: A single view of the chest demonstrates diffuse increased interstitial markings. Persistent and enlar ging bilateral pleural effusions with concomitant atelectatic changes. Heart size is prominent. [place] us structures are intact. CONCLUSION: Worsening CHF. Karan Simmons MD on September 08, 2016 at 17:55 Board Certified Radiologist. This report was verified electronically.
[2016-09-08] MEDS: RESP: ALBUTEROL 2.5 MG/IPRATROPIUM 0.5 MG NEB (PRN) NEB ×2 (19:37→23:23)
[2016-09-08] MEDS: ACETAMINOPHEN 325 MG TAB PO PRN (22:38)
[2016-09-09] VITALS (10 sets, daily range): BP systolic 99–161; BP diastolic 52–91; PULSE 71–100; RESP 18–21; TEMP 96–100.1; O2SAT 90–98
[2016-09-09] MEDS: BENZONATATE 100 MG CAP PO PRN ×3 (00:58→21:27)
[2016-09-09] MEDS: ACETAMINOPHEN/HYDROcodone 325 MG/10 MG TAB PO PRN (03:06)
[2016-09-09] MEDS: RESP: ALBUTEROL 2.5 MG/IPRATROPIUM 0.5 MG NEB (PRN) NEB ×3 (04:56→14:51)
[2016-09-09 07:07] LABS: POTASSIUM 3.5 MEQ/L (3.5-5.1)
[2016-09-09] MEDS: ACETAMINOPHEN/HYDROcodone 325 MG/5 MG TAB PO PRN ×2 (07:10→21:27)
[2016-09-09] MEDS: LEVOTHYROXINE SODIUM 75 MCG TAB PO SCH (07:10)
[2016-09-09 07:12] LABS: BICARBONATE 30.9 MEQ/L (21.0-32.0); PROTHROMBIN TIME - PATIENT 46.5 SEC (9.8-11.6)
[2016-09-09] MEDS: SODIUM CHLORIDE 0.9% FLUSH 10 ML FLUSH IV FLUSH SCH ×2 (09:00→21:23)
[2016-09-09] MEDS: UMECLIDINIUM 62.5 MCG/VILANTEROL 25 MCG INHALER INH SCH (09:34)
[2016-09-09] MEDS: ENALAPRIL MALEATE 10 MG TAB PO SCH (09:36)
[2016-09-09] MEDS: POTASSIUM CHLORIDE 20 MEQ CONTROLLED RELEASE TAB PO SCH (09:36)
[2016-09-09] MEDS: DILTIAZEM-CD 240 MG CAP ER PO SCH (09:36)
[2016-09-09] MEDS: FUROSEMIDE 20 MG/2 ML VIAL IV PUSH SCH ×2 (09:36→21:22)
[2016-09-09] MEDS: METOPROLOL TARTRATE 100 MG TAB PO SCH ×2 (09:36→21:22)
[2016-09-09] MEDS: ACETAMINOPHEN 325 MG TAB PO PRN (09:37)
--- NOTE | 2016-09-09 15:18 | HHI.PR ---
Subjective Remarks The patient states she does not feel improved. She feels she is getting weaker. She states she still has cough but it is improving. The patient denies dyspnea however she has been increased to 4 L nasal cannula. She states she is followed by sanitation engineer Dr. Estrella for sleep apnea and was recently placed on oxygen via nasal cannula at night. The patient's floor installer is Dr. Jackson and she states she has been on Coumadin for 7 years with him managing those levels. The patient also states that she has previous history of left- sided rib fractures with thoracentesis, recurrent pleural effusion followed by pleurodesis. The patient at this time does not want me to consult another sanitation engineer as she feels comfortable with Dr. Estrella. She is agreeable to proceeding with chest CT. The patient states that occasionally Dr. Estrella treats her with Zaroxolyn as well. She has not noticed any increase in pedal edema. Objective Vitals Vital Signs Date Time Temp Pulse Resp B/P Pulse Ox O2 Delivery O2 Flow Rate FiO2 09/09/16 12:00 97.8 76 20 120/66 92 09/09/16 10:35 92 High Flow Nasal Cannula 4.00 09/09/16 08:00 100.1 91 20 161/78 93 09/09/16 04:00 99.7 75 19 126/76 90 09/09/16 00:00 96.0 73 19 109/58 93 09/08/16 20:00 99.5 125 20 162/83 93 09/08/16 19:55 93 Nasal Cannula 4.00 09/08/16 19:37 90 Nasal Cannula 3.00 09/08/16 16:00 97.5 74 18 130/61 93 I/O 09/08/16 09/08/16 09/08/16 09/09/16 09/09/16 09/09/16 07:00 15:00 23:00 07:00 15:00 23:00 Intake Total 60 ml 330 ml 120 ml 120 ml Output Total 200 ml 100 ml 150 ml Balance -140 ml 330 ml 20 ml -30 ml Intake Oral 60 ml 330 ml 120 ml 120 ml IV Total 0 ml 0 ml Output Urine Total 200 ml 100 ml 150 ml # Voids 2 1 2 # Bowel Movements 0 1 0 0 Result Diagram: 09/07/16 0515 09/09/16 0610 Objective Remarks GENERAL: Very pleasant, somewhat pale and frail-appearing female patient in no apparent distress. SKIN: Warm and dry. HEAD: Normocephalic. EYES: No scleral icterus. No injection or drainage. NECK: Supple, trachea midline. No JVD or lymphadenopathy. CARDIOVASCULAR: Irregularly irregular rate and rhythm, 2/6 systolic murmur at the left sternal border. RESPIRATORY: Breath sounds equal bilaterally. Crackles at the bases bilaterally. No accessory muscle use on 4 L. GASTROINTESTINAL: Abdomen soft, non-tender, nondistended. EXTREMITIES: Trace pedal edema. NEUROLOGICAL: Awake, alert, and oriented x 3. Non-focal. Procedures None A/P Assessment and Plan -Acute diastolic CHF. Not significantly improved with diuresis. Renal function is normal. Will increase Lasix to 40 mg IV every 8. Will give Zaroxolyn 2.5 mg dose times one now. I will check a BNP. Chest x-ray yesterday showed "worsening CHF". Echocardiogram shows preserved left ventricular ejection fraction, pulmonary hypertension with peak pulmonary artery pressure of 77, moderate to severe tricuspid valve regurgitation, mild-to -moderate mitral valve regurgitation. -Bilateral pleural effusions. Will check chest CT. Coumadin is on hold in case patient needs thoracentesis. -Cough. We'll start Levaquin IV. Continue Tessalon Perles. Duo nebs. Check chest CT. -history of left-sided rib fractures with thoracentesis, recurrent pleural effusion followed by pleurodesis. -Sleep apnea on 2 L nasal cannula of oxygen at night. -Pulmonary hypertension. -COPD. Continue nebs. No wheezing on exam, due to diabetes will related Solu- Medrol as indicated. -Acute respiratory failure - due to the CHF, pleural effusions. Continue oxygen via nasal cannula, diuresis, Levaquin, chest CT. -Persistent Atrial fibrillation, - rate controlled on diltiazem. On Coumadin, INR 4 today. -Hypertension -Hypokalemia, hypomagnesemia, hyponatremia. Monitor labs and replete as indicated. -IDDM- patient will continue with her insulin pump. accuchecks running in the 200s today. Continue Accu-Cheks with insulin sliding scale via the pump. -Hypothyroidism- TSH within normal limits, continue home dose of Levothyroxine. -DVT prophylaxis - Coumadin. [place],Joy Lisset MD Sep 09, 2016 15:18
[2016-09-09] MEDS ORDERED: METOLAZONE 2.5 MG TAB PO ONE (16:00)
[2016-09-09] MEDS ORDERED: FUROSEMIDE 20 MG/2 ML VIAL IV PUSH SCH (17:00)
--- NOTE | 2016-09-09 17:01 | RADHPO ---
EXAM DATE/TIME: 09/09/2016 16:33 [facility] COMPARISON: CT THORAX W CONTRAST, January 01, 2016, 0:59. INDICATIONS : Persistent and enlarging bilateral pleural effusions with concomitant atelectatic changes. RADIATION DOSE: 14.92 CTDIvol (mGy) MEDICAL HISTORY : A fib. Hypertension. Chronic obstructive pulmonary disease. Thyroid disease. Diabetes. SURGICAL HISTORY : Cardiac ablations. ENCOUNTER: Subsequent ACUITY: 4 - 6 days PAIN SCALE: 0/10 LOCATION: Bilateral chest TECHNIQUE: Volumetric scanning of the chest was performed. Using automated exposure control and adjustment of t he mA and/or kV according to patient size, radiation dose was kept as low as reasonably achievable to obtain optimal diagnostic quality images. FINDINGS: LUNGS: Bilateral apical scarring. Moderate severity groundglass opacity in the right upper lobe. Mixed conso lidation, groundglass opacity, and centrilobular nodularity of the right lower lobe. Dependent consol idation and groundglass opacity in the left lower lobe and left upper lobe. PLEURAE: Small right and moderate-sized left pleural effusion. MEDIASTINUM: Aortic calcification. Aortic diameter within normal limits. Coronary artery calcification. Multiple a pproximately 1 cm mediastinal lymph nodes unchanged, likely reactive. AXILLAE: Within normal limits. No lymphadenopathy. MUSCULOSKELETAL: Multiple old healed left-sided rib fractures. MISCELLANEOUS: Upper abdomen within normal limits. CONCLUSION: 1. Prominent bilateral mixed consolidation and groundglass opacity in the lungs, fairly symmetric. In itial diagnosis includes pulmonary edema, infection and hypersensitivity pneumonitis. 2. Small right and moderate left pleural effusion. 3. Coronary artery calcifications. 4. Multiple approximately 1 cm mediastinal lymph nodes unchanged, likely reactive. Contreras Pond MD on September 09, 2016 at 16:53 Board Certified Radiologist. This report was verified electronically.
[2016-09-09] MEDS: LEVOFLOXACIN 750 MG PREMIX INJ 150 ML IV SCH (17:05)
[2016-09-10] VITALS (10 sets, daily range): BP systolic 111–142; BP diastolic 59–74; PULSE 69–78; RESP 18–22; TEMP 96–97.6; O2SAT 93–98
[2016-09-10] MEDS: LEVOTHYROXINE SODIUM 75 MCG TAB PO SCH (05:38)
[2016-09-10] MEDS: ONDANSETRON HCL 4 MG/2 ML VIAL IVP PRN ×2 (05:42→21:11)
[2016-09-10 05:54] LABS: AUTOMATED NEUTROPHIL # 3.1 TH/MM3 (1.8-7.7); BASOPHIL % 0.1 % (0.0-2.0); EOSINOPHIL % 0.2 % (0.0-4.0); HEMATOCRIT 40.5 % (35.0-46.0); HEMO FLAGS DIFF FINAL; LYMPH % 19.2 % (9.0-44.0); LYMPHOCYTE # 0.9 TH/MM3 (1.0-4.8); MEAN CELL VOLUME 89.5 FL (80.0-100.0); MEAN CORPUSCULAR HEMOGLOBIN 29.4 PG (27.0-34.0); MEAN CORPUSCULAR HGB CONC 32.8 % (32.0-36.0); NEUT % 68.5 % (16.0-70.0); PLATELET COUNT 139 TH/MM3 (150-450); RED BLOOD COUNT 4.52 MIL/MM3 (4.00-5.30); RED CELL DISTRIBUTION WIDTH 14.3 % (11.6-17.2); WHITE BLOOD COUNT 4.5 TH/MM3 (4.0-11.0)
[2016-09-10 06:02] LABS: POTASSIUM 3.8 MEQ/L (3.5-5.1)
[2016-09-10 06:06] LABS: BICARBONATE 31.5 MEQ/L (21.0-32.0)
[2016-09-10] MEDS: FUROSEMIDE 20 MG/2 ML VIAL IV PUSH SCH ×2 (08:47→20:44)
[2016-09-10] MEDS: DILTIAZEM-CD 240 MG CAP ER PO SCH (08:47)
[2016-09-10] MEDS: ENALAPRIL MALEATE 10 MG TAB PO SCH (08:47)
[2016-09-10] MEDS: UMECLIDINIUM 62.5 MCG/VILANTEROL 25 MCG INHALER INH SCH (08:47)
[2016-09-10] MEDS: METOPROLOL TARTRATE 100 MG TAB PO SCH ×2 (08:47→20:44)
[2016-09-10] MEDS: POTASSIUM CHLORIDE 20 MEQ CONTROLLED RELEASE TAB PO SCH (08:47)
[2016-09-10] MEDS: SODIUM CHLORIDE 0.9% FLUSH 10 ML FLUSH IV FLUSH SCH ×2 (08:48→20:45)
[2016-09-10 10:41] LABS: PROTHROMBIN TIME - PATIENT 46.5 SEC (9.8-11.6)
--- NOTE | 2016-09-10 14:22 | HHI.PR ---
Subjective Remarks The patient denies any dyspnea. She ambulated well with physical therapy with stable vital signs on 3-4 L nasal cannula. Patient states she feels she is not getting any rest or in the hospital. She and her would like her to go home today if possible. They agree to follow-up with her teacher lip reading on Tuesday. Patient's states she never fully recovered from the fall when she had rib fractures on the left earlier this year. Objective Vitals Vital Signs Date Time Temp Pulse Resp B/P Pulse Ox O2 Delivery O2 Flow Rate FiO2 09/10/16 12:00 97.1 70 18 111/73 95 09/10/16 07:59 97.6 73 18 142/74 93 09/10/16 07:50 96 Nasal Cannula 4.00 09/10/16 04:00 97.5 73 18 130/73 98 09/10/16 00:00 96.0 78 18 116/66 96 09/09/16 22:36 18 09/09/16 20:00 71 09/09/16 20:00 96.6 90 18 155/91 96 09/09/16 19:39 92 Nasal Cannula 4.00 09/09/16 16:18 101/67 09/09/16 16:00 96.5 71 20 99/52 93 I/O 09/09/16 09/09/16 09/09/16 09/10/16 09/10/16 09/10/16 07:00 15:00 23:00 07:00 15:00 23:00 Intake Total 120 ml 395 ml 120 ml 660 ml Output Total 150 ml 500 ml 400 ml Balance -30 ml -105 ml 120 ml 260 ml Intake Oral 120 ml 240 ml 120 ml 660 ml IV Total 155 ml Output Urine Total 150 ml 500 ml 400 ml # Voids 2 2 4 # Bowel Movements 0 0 0 Result Diagram: 09/10/16 0530 09/10/16 0530 Imaging Last Impressions Chest CT 09/09/16 0000 Signed Impressions: Service Date/Time: August 16:33 - CONCLUSION: 1. Prominent bilateral mixed consolidation and groundglass opacity in the lungs, fairly symmetric. Initial diagnosis includes pulmonary edema, infection and hypersensitivity pneumonitis. 2. Small right and moderate left pleural effusion. 3. Coronary artery calcifications. 4. Multiple approximately 1 cm mediastinal lymph nodes unchanged, likely reactive. Contreras Pond MD Chest X-Ray 09/08/16 0000 Signed Impressions: Service Date/Time: Thursday, September 08, 2016 17:12 - CONCLUSION: Worsening CHF. Karan Simmons MD Objective Remarks GENERAL: Very pleasant, somewhat pale and frail-appearing female patient in no apparent distress. SKIN: Warm and dry. HEAD: Normocephalic. EYES: No scleral icterus. No injection or drainage. NECK: Supple, trachea midline. No JVD or lymphadenopathy. CARDIOVASCULAR: Irregularly irregular rate and rhythm, 2/6 systolic murmur at the left sternal border. RESPIRATORY: Breath sounds equal bilaterally. Crackles at the bases bilaterally. No accessory muscle use on 4 L. GASTROINTESTINAL: Abdomen soft, non-tender, nondistended. EXTREMITIES: Trace pedal edema. NEUROLOGICAL: Awake, alert, and oriented x 3. Non-focal. Procedures None A/P Problem List: (1) Persistent atrial fibrillation ICD Code: I48.1 Status: Acute (2) Pneumonitis ICD Code: J18.9 Status: Acute (3) Hypoxia ICD Code: R09.02 Status: Acute (4) Gastroenteritis ICD Code: K52.9 Status: Resolved (5) Diabetes ICD Code: E11.9 Status: Chronic Assessment and Plan -Pneumonitis (suspect) versus Acute diastolic CHF. Not significantly improved with diuresis, BNP was not elevated, echocardiogram shows preserved left ventricular ejection fraction, pulmonary hypertension with peak pulmonary artery pressure of 77, moderate to severe tricuspid valve regurgitation, mild-to -moderate mitral valve regurgitation.. Chest CT reviewed today and was consistent with pneumonitis. This would fit her vital picture as she presented with nausea and vomiting after being on a cruise ship. She has been stable on 3 -4 L nasal cannula overnight. Normally at home she uses 2 L at night. She also has severe pulmonary hypertension. I discussed with her teacher lip reading Dr. Estrella who agrees to avoid further aggressive diuresis and continue treatment with Levaquin. He will follow the patient up in his office on Tuesday at 2 PM. -N&V - resolved, suspect viral gastroenteritis - had similar presentation - s/p cruise ship. -Bilateral pleural effusions. Moderate on the left however that is the site of previous rib fractures and thoracentesis and pleurodesis. Small on the right. -history of left-sided rib fractures with thoracentesis, recurrent pleural effusion followed by pleurodesis. -Pulmonary hypertension, Sleep apnea on 2 L nasal cannula of oxygen at night. -COPD. Continue nebs. No wheezing on exam, due to diabetes will related Solu- Medrol as indicated. -Persistent Atrial fibrillation, - rate controlled on diltiazem. continue to hold Coumadin, INR 4 today. -Hypertension - BP stable. -Hypokalemia, hypomagnesemia, hyponatremia. Monitor labs and replete as indicated. -IDDM- patient will continue with her insulin pump. accuchecks running in the 200s today. Continue Accu-Cheks with insulin sliding scale via the pump. -Hypothyroidism- TSH within normal limits, continue home dose of Levothyroxine. -DVT prophylaxis - Coumadin. Discharge Planning If O2 remains stable, DC home tomorrow with f/u with Dr. Estrella on Tuesday. Pt declines [facility]. Joy Cruz MD Sep 10, 2016 14:22
[2016-09-10] MEDS: RESP: ALBUTEROL 2.5 MG/IPRATROPIUM 0.5 MG NEB (PRN) NEB ×2 (15:22→19:56)
[2016-09-10] MEDS: ACETAMINOPHEN/HYDROcodone 325 MG/5 MG TAB PO PRN (16:04)
[2016-09-10] MEDS: LEVOFLOXACIN 750 MG PREMIX INJ 150 ML IV SCH (16:05)
[2016-09-11 00:11] VITALS: BP 120/72; PULSE 75; RESP 18; TEMP 96.6; O2SAT 95
[2016-09-11] MEDS: ONDANSETRON HCL 4 MG/2 ML VIAL IVP PRN (04:07)
[2016-09-11 04:11] VITALS: BP 129/71; PULSE 59; RESP 18; TEMP 96.5; O2SAT 95
[2016-09-11] MEDS: LEVOTHYROXINE SODIUM 75 MCG TAB PO SCH (05:53)
[2016-09-11 07:04] LABS: PROTHROMBIN TIME - PATIENT 35.1 SEC (9.8-11.6)
[2016-09-11 08:00] VITALS: BP 127/71; PULSE 70; PULSE 74; RESP 18; TEMP 97; O2SAT 97
[2016-09-11] MEDS: UMECLIDINIUM 62.5 MCG/VILANTEROL 25 MCG INHALER INH SCH (08:39)
[2016-09-11] MEDS: POTASSIUM CHLORIDE 20 MEQ CONTROLLED RELEASE TAB PO SCH (08:40)
[2016-09-11] MEDS: ENALAPRIL MALEATE 10 MG TAB PO SCH (08:40)
[2016-09-11] MEDS: METOPROLOL TARTRATE 100 MG TAB PO SCH (08:40)
[2016-09-11] MEDS: FUROSEMIDE 20 MG/2 ML VIAL IV PUSH SCH (08:41)
[2016-09-11] MEDS: DILTIAZEM-CD 240 MG CAP ER PO SCH (08:41)
[2016-09-11] MEDS: SODIUM CHLORIDE 0.9% FLUSH 10 ML FLUSH IV FLUSH SCH (09:00)
[2016-09-11] MEDS ORDERED: LEVA750T PO (10:28)
[2016-09-11] MEDS ORDERED: LEVOFLOXACIN 750 MG TAB PO ONE (11:00)
[2016-09-11 12:00] VITALS: BP 114/62; PULSE 72; RESP 18; TEMP 97.4; O2SAT 100
--- NOTE | 2016-09-11 12:18 | HHI.DS ---
Discharge Summary Admission Date Sep 06, 2016 at 15:08 Discharge Date: Sep 11, 2016 Admitting Diagnosis Uncontrolled DM; CHF; AFib (1) Persistent atrial fibrillation ICD Code: I48.1 (2) Pneumonitis ICD Code: J18.9 (3) Hypoxia ICD Code: R09.02 (4) Gastroenteritis ICD Code: K52.9 (5) Diabetes ICD Code: E11.9 Procedures None Brief History - From Admission This is a 75-year-old female with past medical history significant for insulin dependent diabetes, atrial fibrillation, pulmonary hypertension, hypothyroidism and POLO on night time oxygen who presents to [facility] ED with complaints of poor oral intake, nausea, vomiting and dry heaves for 2 days. Patient states that her symptoms began shortly after she ate lobster while she was on a cruise Tuesday evening. She denies any blood or bile in the vomitus. She states her had the same meal and has not been ill. She reports associated shortness of breath. She denies any chest pain or abdominal pain. She states that her blood sugars have been running high for her around 240 and she has been spilling ketones in her urine. She does utilize insulin pump. Patient denies any diarrhea or constipation. In the ED, patient's BP is elevated 172/80, temp 98.9 and HR 108. White count is well within normal limits at 5.5. She has hypokalemia and hypomagnesemia. Her blood sugar was 219. CBC/BMP: 09/10/16 0530 09/10/16 0530 Significant Findings Laboratory Tests Test 09/09/16 09/09/16 09/10/16 09/10/16 06:10 15:11 05:30 10:00 Prothrombin Time 46.5 SEC 46.5 SEC (9.8-11.6) (9.8-11.6) Sodium Level 132 MEQ/L 132 MEQ/L (136-145) (136-145) Chloride Level 90 MEQ/L 90 MEQ/L (98-107) (98-107) Random Glucose 250 MG/DL 232 MG/DL (74-106) (74-106) Calcium Level 7.9 MG/DL 8.3 MG/DL (8.5-10.1) (8.5-10.1) B-Type Natriuretic Peptide 198 PG/ML (0-100) Platelet Count 139 TH/MM3 (150-450) Monocytes (%) (Auto) 12.0 % (0.0-8.0) Lymphocytes # (Auto) 0.9 TH/MM3 (1.0-4.8) Test 09/11/16 06:25 Prothrombin Time 35.1 SEC (9.8-11.6) PE at Discharge GENERAL: Very pleasant, somewhat pale and frail-appearing female patient in no apparent distress. SKIN: Warm and dry. HEAD: Normocephalic. EYES: No scleral icterus. No injection or drainage. NECK: Supple, trachea midline. No JVD or lymphadenopathy. CARDIOVASCULAR: Irregularly irregular rate and rhythm, 2/6 systolic murmur at the left sternal border. RESPIRATORY: Breath sounds equal bilaterally. Crackles at the bases bilaterally. No accessory muscle use on 4 L. GASTROINTESTINAL: Abdomen soft, non-tender, nondistended. EXTREMITIES: Trace pedal edema. NEUROLOGICAL: Awake, alert, and oriented x 3. Non-focal. Pt update on day of discharge The patient is improved today and wean down to 2 L oxygen. She states she feels her strength is better. INR is 3 today. She is eager to go home. Agrees to follow-up with Dr. Estrella on Tuesday. The patient states she has nightmares with Levaquin but after discussing various antibiotic alternatives she decides to stay with Levaquin. Hospital Course -Pneumonitis (suspect) versus Acute diastolic CHF. She did not improve with diuresis, BNP was not elevated, echocardiogram shows preserved left ventricular ejection fraction, pulmonary hypertension with peak pulmonary artery pressure of 77, moderate to severe tricuspid valve regurgitation, [id number]-[id number] mitral valve regurgitation. Chest CT on September 10 was consistent with pneumonitis. She was started on Levaquin and now has improved. Pneumonitis fits to the vital picture as she presented with nausea and vomiting after being on a cruise ship. She is now weaned down to 2 L nasal cannula. Normally at home she uses 2 L at night. She also has severe pulmonary hypertension. 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 Estrella yesterday who agrees to avoid further aggressive diuresis and continue treatment with Levaquin. He will follow the patient up in his office on Tuesday at 2 PM. Patient advised to continue 2 L oxygen continuously. -N&V - resolved, suspect viral gastroenteritis - had similar presentation - s/p cruise ship. -Bilateral pleural effusions. Moderate on the left however that is the site of previous rib fractures and thoracentesis and pleurodesis. Small on the right. -history of left-sided rib fractures with thoracentesis, recurrent pleural effusion followed by pleurodesis. -Pulmonary hypertension, Sleep apnea on 2 L nasal cannula of oxygen at night. -COPD. Continue nebs. No wheezing on exam, due to diabetes will related Solu- Medrol as indicated. -Persistent Atrial fibrillation, - rate controlled on diltiazem. continue to hold Coumadin, INR 3 today. Patient instructed she may take her home dose tomorrow if INR is between 2-3. She does have an PT/INR machine at home. -Hypertension - BP stable. -Hypokalemia, hypomagnesemia, hyponatremia. Monitor labs and replete as indicated. -IDDM- patient will continue with her insulin pump. accuchecks running in the 200s today. Continue Accu-Cheks with insulin sliding scale via the pump. -Hypothyroidism- TSH within normal limits, continue home dose of Levothyroxine. Pt Condition on Discharge: Stable Discharge Disposition: Discharge Home Discharge Time: > 30 minutes Discharge Instructions DIET: Follow Instructions for: Diabetic Diet Activities you can perform: Regular-No Restrictions Follow up Referrals: Pulmonology - 09/13/16 with Anastacio Estrella MD New Medications: Levofloxacin (Levaquin) 750 Mg Tab 750 MG PO DAILY Infection #7 Ref 0 TAB Continued Medications: Albuterol 8.5 GM Inh (Proair Hfa 8.5 GM Inh) 90 Mcg/Act Aer 2 PUFF INH Q4-6H 108 mcg/actuation PRN SHORTNESS OF BREATH #1 Ref 0 INHALER Diltiazem (Cardizem) 120 Mg Tab 240 MG PO BID Angina #120 Ref 0 TAB Enalapril (Enalapril) 20 Mg Tab 20 MG PO DAILY #30 Ref 0 TAB Furosemide (Lasix) 20 Mg Tab 20 MG PO DAILY #30 Ref 0 TAB Levothyroxine (Levothyroxine) 75 Mcg Tab 75 MCG PO DAILY Thyroid #30 Ref 0 TAB Metoprolol Tartrate (Metoprolol Tartrate) 100 Mg Tab 100 MG PO BID #60 Ref 0 TAB Potassium (Potassium) 75 Mg Tab 20 MEQ PO Umeclidinium-Vilanterol Inh (Anoro Ellipta Inh) 62.5-25 Mcg/Act Aero 1 PUFF INH DAILY COPD #1 Ref 0 INHALER Warfarin (Warfarin) 2.5 Mg Tab 2.5 MG PO DAILY Blood Clot Prevention #30 Ref 0 TAB ([Insulin Pump]) Discontinued Medications: Clonidine 168 HR Patch (Clonidine 168 HR Patch) 0.1 Mg/24 Hr Patch 1 PATCH T-DERMAL Q7D Blood Pressure Management #4 Ref 0 PATCH Joy Cruz MD Sep 11, 2016 12:18
[2016-09-11] MEDS ORDERED: WARFARIN SOD 2 MG TAB PO SCH (16:00)
== END 2016-09-11 13:56 | disposition home or self-care (01) | DRG 391 ==
LOC: PHED 20:35 → INTOOBSV 09-06 00:28 → PHEDA 09-06 00:28 → PH3B 09-06 08:43 → OBSVTOIN 09-06 15:08
PROVIDERS: ADMIT Family Medicine; ATTEND Family Medicine
DX: K52.9 Noninfective gastroenteritis and colitis, unspecified (principal); I50.33 Acute on chronic diastolic (congestive) heart failure; J96.01 Acute respiratory failure with hypoxia; J18.9 Pneumonia, unspecified organism; E11.65 Type 2 diabetes mellitus with hyperglycemia; I48.1 Persistent atrial fibrillation; I27.2 Other secondary pulmonary hypertension; E87.1 Hypo-osmolality and hyponatremia; I11.0 Hypertensive heart disease with heart failure; J44.0 Chronic obstructive pulmonary disease with (acute) lower respiratory infection; E83.42 Hypomagnesemia; E03.9 Hypothyroidism, unspecified; E87.6 Hypokalemia; G47.33 Obstructive sleep apnea (adult) (pediatric); I34.0 Nonrheumatic mitral (valve) insufficiency; Z79.01 Long term (current) use of anticoagulants; Z79.4 Long term (current) use of insulin; Z96.41 Presence of insulin pump (external) (internal); Z99.81 Dependence on supplemental oxygen
CPT/HCPCS: 71010; 71250; 80048; 80053; 81001; 82010; 82948; 83605; 83690; 83735; 83880; 84100; 84443; 84484; 85025; 85610; 93005; 93306; 94640; 94664; 96361; 96365; 96375; 96376; J1940; J1956; J2405; J2765; J3475; J3480; J7030

== ENCOUNTER → 2016-10-05 | Outpatient (CLI) | payer MEDICARE ==
[~2016-10-05] MED LIST changes: +ALBUAER3 INH; +AMIO200T PO; +CARD120T4 PO; -CART240C4 PO; +CLON.2T T-DERMAL; -CLON0.3D TD; -DOCU1CAP39 PO; +ENAL20TA PO; +FURO1TAB62 PO; +INSUINJ3 SQ; +LEVA750T PO; +LEVO75TA3 PO; -LEVO75TA42 PO; +METO100T PO; -MORP1INJ45 PO; -OXYC5 PO; +POTA-163 PO; +POTA75TA PO; -SENN8.6T15 PO; +SPIR50TA PO; -SYMB160A INH; +UMEC1AER INH; +WARF-18 PO; +WARF-23 PO; -WARF2.5 PO
[2016-10-05 10:10] LABS: INTERNATIONAL NORMALIZED RATIO 4.4 RATIO; PROTHROMBIN TIME - PATIENT 51.8 SEC (9.8-11.6)
== END ==
LOC: PLAB 09:21
DX: I25.10 Atherosclerotic heart disease of native coronary artery without angina pectoris (principal); E10.65 Type 1 diabetes mellitus with hyperglycemia; M25.473 Effusion, unspecified ankle; I48.91 Unspecified atrial fibrillation; I48.0 Paroxysmal atrial fibrillation; I27.2 Other secondary pulmonary hypertension; E03.9 Hypothyroidism, unspecified; I47.1 Supraventricular tachycardia
CPT/HCPCS: 36415; 85610

== ENCOUNTER → 2016-10-11 | Outpatient (CLI) | payer MEDICARE ==
[2016-10-11 14:04] LABS: INTERNATIONAL NORMALIZED RATIO 2.4 RATIO; PROTHROMBIN TIME - PATIENT 27.8 SEC (9.8-11.6)
== END ==
LOC: PLAB 13:10
DX: I25.10 Atherosclerotic heart disease of native coronary artery without angina pectoris (principal); E10.65 Type 1 diabetes mellitus with hyperglycemia; M25.473 Effusion, unspecified ankle; I48.0 Paroxysmal atrial fibrillation; E03.9 Hypothyroidism, unspecified; I47.1 Supraventricular tachycardia
CPT/HCPCS: 36415; 85610

== ENCOUNTER → 2016-10-27 | Outpatient (CLI) | payer MEDICARE ==
[2016-10-27 13:14] LABS: INTERNATIONAL NORMALIZED RATIO 2.4 RATIO; PROTHROMBIN TIME - PATIENT 27.5 SEC (9.8-11.6)
[2016-10-27 15:52] LABS: ALT (GPT) 25 U/L (10-53); ANION GAP 5 MEQ/L (5-15); AST (GOT) 28 U/L (15-37); BICARBONATE 32.3 MEQ/L (21.0-32.0); BLOOD UREA NITROGEN 13 MG/DL (7-18); CHLORIDE 99 MEQ/L (98-107); GLOMERULAR FILTRATION RATE 75 ML/MIN (>89); POTASSIUM 4.5 MEQ/L (3.5-5.1); SODIUM (NA) 136 MEQ/L (136-145)
[2016-10-27 15:55] LABS: ALKALINE PHOSPHATASE 187 U/L (45-117); TOTAL BILIRUBIN ADULT 0.7 MG/DL (0.2-1.0)
[2016-10-27 16:36] LABS: MICRO ALBUMIN RANDOM URINE RAW 42.5 MG/L (0.0-30.0)
[2016-10-27 18:00] LABS: HEMOGLOBIN A1a 1.1 %; HEMOGLOBIN A1b 0.7 %; HEMOGLOBIN Ao 81.6 %; HEMOGLOBIN F 1.4 %; HEMOGLOBIN LA1C 2.5 %; HEMOGLOBIN P3 4.4 %
== END ==
LOC: PLAB 11:54
PROVIDERS: ATTEND Internal Medicine Endocrinology, Diabetes & Metabolism
DX: E10.65 Type 1 diabetes mellitus with hyperglycemia (principal); I25.10 Atherosclerotic heart disease of native coronary artery without angina pectoris; M25.473 Effusion, unspecified ankle; I48.0 Paroxysmal atrial fibrillation; I27.2 Other secondary pulmonary hypertension; E03.9 Hypothyroidism, unspecified; I47.1 Supraventricular tachycardia
CPT/HCPCS: 36415; 80053; 82043; 83036; 85610

== ENCOUNTER 2016-10-31 08:39 | Emergency (ER) | payer MEDICARE ==
[~2016-10-31] VITALS: Ht 172.7 cm; Wt 69.0 kg
[~2016-10-31 08:39] MED LIST changes: -AMIO200T PO; -CLON.2T T-DERMAL; -ENAL20TA81 PO; -INSUINJ3 SQ; -POTA-163 PO; -SPIR50TA PO; -WARF-23 PO
[2016-10-31 08:42] VITALS: BP 154/69; PULSE 69; RESP 16; TEMP 97.6; O2SAT 98
--- NOTE | 2016-10-31 08:54 | PD ---
HPI Chief Complaint: Injury Time Seen by Provider: 08:50 Travel History International Travel<30 days: No Contact w/Intl Traveler<30days: No Traveled to known affect area: No History of Present Illness HPI Pleasant 76-year-old female here with complaint of right foot pain. Yesterday patient dropped a suitcase on the dorsal aspect of her right foot. She notes a small abrasion, pain, swelling. She was up much of the night with throbbing, prompting ER visit. She is been able to ambulate with her walker at baseline without any difficulty. PFSH Past Medical History Hx Anticoagulant Therapy: Yes Atrial Fibrillation: Yes Cardiovascular Problems: Yes (A FIB) COPD: Yes Diabetes: Yes (insulin pump) Diminished Hearing: No Endocrine: Yes Genitourinary: No Hiatal Hernia: No Hypertension: Yes Immune Disorder: No Musculoskeletal: No Neurologic: No Psychiatric: No Reproductive: No Respiratory: Yes Thyroid Disease: Yes Menopausal: Yes Past Surgical History Appendectomy: Yes Body Medical Devices: BILATERAL BREAST IMPLANTS Cardiac Surgery: Yes (Ablation for A-fib) Gynecologic Surgery: Yes (BREAST AUGMENTATION) Hysterectomy: Yes Tonsillectomy: Yes Other Surgery: Yes (NUMEROUS HAND SURGERIES FOR TRIGGER FINGER - BILAT. SHOULDER SURGERIES ) Social History Alcohol Use: Yes (WINE DAILY) Tobacco Use: No (never) Substance Use: No Allergies-Medications (Allergen,Severity, Reaction): Coded Allergies: Aspirin (Verified Allergy, Severe, SWELLING OF THE FACE, 10/31/16) Ambien (Verified Allergy, Intermediate, Confusion, 10/31/16) Ticlid (Verified Allergy, Intermediate, CELLULITIS, 10/31/16) Reported Meds & Prescriptions Reported Meds & Active Scripts Active Reported Spironolactone 50 Mg Tab 50 Mg PO DAILY Novolin R Relion (Insulin Regular (Human)) 100 Unit/Ml Inj Unit SQ DIRECTED Amiodarone (Amiodarone HCl) 200 Mg Tab 200 Mg PO DAILY Potassium Chloride ER (Potassium Chloride) 20 Meq Tab 20 Meq PO DAILY Vasotec (Enalapril Maleate) 20 Mg Tab 20 Mg PO DAILY [id number] 168 HR Patch (Clonidine) 0.2 Mg/24 Hr Patch 1 Patch T-DERMAL Q7D Warfarin 5 Mg Tab 5 Mg PO DAILY Metoprolol Tartrate 100 Mg Tab 50 Mg PO BID Lasix (Furosemide) 20 Mg Tab 40 Mg PO DAILY Warfarin 2.5 Mg Tab 2.5 Mg PO DIRECTED MON AND FRI Levothyroxine (Levothyroxine Sodium) 75 Mcg Tab 75 Mcg PO DAILY Anoro Ellipta Inh (Umeclidinium/Vilanterol) 62.5-25 Mcg/Act Aero 1 Puff INH DAILY [Insulin Pump] Review of Systems General / Constitutional: No: Fever Cardiovascular: No: Chest Pain or Discomfort Respiratory: No: Shortness of Breath Musculoskeletal: Positive: Pain Skin: Positive Other Neurologic: No: Weakness Physical Exam Narrative GENERAL: Pleasant elderly female in no acute distress SKIN: Abrasion over the dorsal aspect of the right foot HEAD:Normocephalic. EYES: No scleral icterus. No injection or drainage. CARDIOVASCULAR: Regular rate and rhythm. RESPIRATORY: No accessory muscle use. MUSCULOSKELETAL: Right foot without obvious deformity, though diffuse edema focus most over the first and second metatarsal. Abrasion over the dorsal aspect of the foot. Tenderness to palpation over the first and second metatarsal raise without palpable deformity. No tenderness of the midfoot, calcaneus, ankle. NEUROLOGICAL: Awake and alert. Ambulates with walker. Normal speech. PSYCHIATRIC: Appropriate mood and affect; insight and judgment normal. Data Data Last Documented VS Vital Signs Date Time Temp Pulse Resp B/P Pulse Ox O2 Delivery O2 Flow Rate FiO2 10/31/16 08:42 97.6 69 16 154/69 98 Orders Foot, Complete ([id number]) (10/31/16 ) [facility] Medical Decision Making Medical Screen Exam Complete: Yes Emergency Medical Condition: Yes Medical Record Reviewed: Yes Differential Diagnosis 76 year old female here with right foot pain after she actually dropped a suitcase on it yesterday. Differential includes contusion, abrasion, fracture, dislocation. Narrative Course X-ray of the right foot showed no evidence of fracture Diagnosis Primary Impression: Contusion of right foot Qualified Code: S90.31XA - Contusion of right foot, initial encounter Referrals: Primary Care Physician as needed Additional Instructions: Tylenol, ibuprofen, Aleve as needed for pain. Med/Other Pt SpecificInfo: No Change to Meds Disposition: 01 DISCHARGE HOME Condition: Stable Danika Fonseca MD October 31, 2016 08:54
[2016-10-31] MEDS ORDERED: CLON.2T T-DERMAL (09:14)
[2016-10-31] MEDS ORDERED: INSUINJ3 SQ (09:14)
[2016-10-31] MEDS ORDERED: WARF-23 PO (09:14)
[2016-10-31] MEDS ORDERED: ENAL20TA81 PO (09:14)
[2016-10-31] MEDS ORDERED: POTA-163 PO (09:14)
[2016-10-31] MEDS ORDERED: SPIR50TA PO (09:14)
[2016-10-31] MEDS ORDERED: AMIO200T PO (09:14)
--- NOTE | 2016-10-31 09:24 | RADHPO ---
EXAM DATE/TIME: 10/31/2016 09:05 [place] COMPARISON: No previous studies available for comparison. INDICATIONS : Suitcase fell on foot MEDICAL HISTORY : Diabetes mellitus type I. Hypertension SURGICAL HISTORY : None. ENCOUNTER: Initial ACUITY: 1 day PAIN SCORE: 8/10 LOCATION: Right foot FINDINGS: Decreased density and vascular calcifications are noted. 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 Plantar heel spur. No fractures are seen. CONCLUSION: No acute disease. Jarvis Sargent MD on October 31, 2016 at 9:20 Board Certified Radiologist. This report was verified electronically.
== END 2016-10-31 09:34 | disposition home or self-care (01) ==
LOC: PHEFT 08:39
DX: S90.31XA Contusion of right foot, initial encounter (principal); S90.811A Abrasion, right foot, initial encounter; E11.9 Type 2 diabetes mellitus without complications; Z79.4 Long term (current) use of insulin; I10 Essential (primary) hypertension; W22.8XXA Striking against or struck by other objects, initial encounter; Y93.9 Activity, unspecified; Y92.9 Unspecified place or not applicable; Z96.41 Presence of insulin pump (external) (internal); Y99.9 Unspecified external cause status; Z79.01 Long term (current) use of anticoagulants
CPT/HCPCS: 73630; 99283

== ENCOUNTER → 2016-11-04 | Outpatient (CLI) | payer MEDICARE ==
[~2016-11-04] MED LIST changes: -ALBUAER3 INH; +AMIO200T PO; -CARD120T4 PO; +CLON.2T T-DERMAL; -ENAL20TA PO; +ENAL20TA81 PO; +INSUINJ3 SQ; -LEVA750T PO; +POTA-163 PO; -POTA75TA PO; +SPIR50TA PO; +WARF-23 PO
[2016-11-04 14:10] LABS: INTERNATIONAL NORMALIZED RATIO 2.1 RATIO; PROTHROMBIN TIME - PATIENT 24.1 SEC (9.8-11.6)
== END ==
LOC: PLAB 12:59
DX: I25.10 Atherosclerotic heart disease of native coronary artery without angina pectoris (principal); E10.65 Type 1 diabetes mellitus with hyperglycemia; M25.473 Effusion, unspecified ankle; I48.91 Unspecified atrial fibrillation; I48.0 Paroxysmal atrial fibrillation; I27.2 Other secondary pulmonary hypertension; E03.9 Hypothyroidism, unspecified; I47.1 Supraventricular tachycardia
CPT/HCPCS: 36415; 85610

== ENCOUNTER → 2016-11-11 | Outpatient (CLI) | payer MEDICARE ==
[2016-11-11 15:36] LABS: INTERNATIONAL NORMALIZED RATIO 3.4 RATIO; PROTHROMBIN TIME - PATIENT 39.3 SEC (9.8-11.6)
== END ==
LOC: PLAB 13:21
DX: I25.10 Atherosclerotic heart disease of native coronary artery without angina pectoris (principal); E10.65 Type 1 diabetes mellitus with hyperglycemia; M25.473 Effusion, unspecified ankle; I48.0 Paroxysmal atrial fibrillation; I27.2 Other secondary pulmonary hypertension; E03.9 Hypothyroidism, unspecified; I47.1 Supraventricular tachycardia
CPT/HCPCS: 36415; 85610

== ENCOUNTER → 2016-11-29 | Outpatient (CLI) | payer MEDICARE ==
[2016-11-29 13:10] LABS: AUTOMATED NEUTROPHIL # 3.3 TH/MM3 (1.8-7.7); BASOPHIL % 0.6 % (0.0-2.0); EOSINOPHIL # 0.2 TH/MM3 (0-0.4); EOSINOPHIL % 3.1 % (0.0-4.0); HEMATOCRIT 37.4 % (35.0-46.0); HEMO FLAGS DIFF FINAL; LYMPH % 23.6 % (9.0-44.0); LYMPHOCYTE # 1.3 TH/MM3 (1.0-4.8); MEAN CORPUSCULAR HEMOGLOBIN 29.8 PG (27.0-34.0); MEAN CORPUSCULAR HGB CONC 33.9 % (32.0-36.0); MONO % 13.8 % (0.0-8.0); NEUT % 58.9 % (16.0-70.0); PLATELET COUNT 191 TH/MM3 (150-450); RED BLOOD COUNT 4.25 MIL/MM3 (4.00-5.30); WHITE BLOOD COUNT 5.6 TH/MM3 (4.0-11.0)
[2016-11-29 13:32] LABS: ANION GAP 9 MEQ/L (5-15); AST (GOT) 17 U/L (15-37); BICARBONATE 29.2 MEQ/L (21.0-32.0); BLOOD UREA NITROGEN 14 MG/DL (7-18); CHLORIDE 91 MEQ/L (98-107); GLOMERULAR FILTRATION RATE 87 ML/MIN (>89); GLUCOSE,FASTING 172 MG/DL (74-99); POTASSIUM 4.4 MEQ/L (3.5-5.1); SODIUM (NA) 129 MEQ/L (136-145)
[2016-11-29 13:42] LABS: ALKALINE PHOSPHATASE 115 U/L (45-117); ALT (GPT) 21 U/L (10-53); FREE T4 1.36 NG/DL (0.76-1.46); LDL CHOLESTEROL 78 MG/DL (0-99); TOTAL BILIRUBIN ADULT 0.7 MG/DL (0.2-1.0)
== END ==
LOC: PLAB 10:00
PROVIDERS: ATTEND Physician Assistant Medical
DX: I25.10 Atherosclerotic heart disease of native coronary artery without angina pectoris (principal); I48.0 Paroxysmal atrial fibrillation; I27.2 Other secondary pulmonary hypertension; I48.2 Chronic atrial fibrillation
CPT/HCPCS: 36415; 80053; 80061; 84439; 84443; 85025

== ENCOUNTER → 2017-01-20 | Outpatient (CLI) | payer MEDICARE ==
[2017-01-20 15:26] LABS: INTERNATIONAL NORMALIZED RATIO 1.9 RATIO; PROTHROMBIN TIME - PATIENT 21.5 SEC (9.8-11.6)
== END ==
LOC: PLAB 13:08
DX: I48.91 Unspecified atrial fibrillation (principal)
CPT/HCPCS: 36415; 85610

== ENCOUNTER → 2017-02-02 | Outpatient (CLI) | payer MEDICARE ==
[2017-02-02 10:43] LABS: INTERNATIONAL NORMALIZED RATIO 4.5 RATIO; PROTHROMBIN TIME - PATIENT 53.5 SEC (9.8-11.6)
[2017-02-02 12:52] LABS: AUTOMATED NEUTROPHIL # 2.5 TH/MM3 (1.8-7.7); BASOPHIL % 0.9 % (0.0-2.0); EOSINOPHIL # 0.1 TH/MM3 (0-0.4); EOSINOPHIL % 2.3 % (0.0-4.0); HEMATOCRIT 39.6 % (35.0-46.0); HEMO FLAGS DIFF FINAL; LYMPH % 29.1 % (9.0-44.0); LYMPHOCYTE # 1.3 TH/MM3 (1.0-4.8); MEAN CELL VOLUME 93.5 FL (80.0-100.0); MEAN CORPUSCULAR HGB CONC 32.1 % (32.0-36.0); MONO % 12.7 % (0.0-8.0); PLATELET COUNT 214 TH/MM3 (150-450); RED BLOOD COUNT 4.23 MIL/MM3 (4.00-5.30); RED CELL DISTRIBUTION WIDTH 16.5 % (11.6-17.2); WHITE BLOOD COUNT 4.5 TH/MM3 (4.0-11.0)
[2017-02-02 13:03] LABS: MICRO ALBUMIN RANDOM URINE RAW 88.3 MG/L (0.0-30.0)
[2017-02-02 13:07] LABS: ANION GAP 10 MEQ/L (5-15); AST (GOT) 26 U/L (15-37); BICARBONATE 29.3 MEQ/L (21.0-32.0); BLOOD UREA NITROGEN 13 MG/DL (7-18); CHLORIDE 101 MEQ/L (98-107); GLOMERULAR FILTRATION RATE 66 ML/MIN (>89); GLUCOSE,FASTING 132 MG/DL (74-99); MAGNESIUM 1.6 MG/DL (1.5-2.5); POTASSIUM 3.9 MEQ/L (3.5-5.1); SODIUM (NA) 140 MEQ/L (136-145)
[2017-02-02 13:18] LABS: ALKALINE PHOSPHATASE 303 U/L (45-117); ALT (GPT) 39 U/L (10-53); FREE T4 1.66 NG/DL (0.76-1.46); TOTAL BILIRUBIN ADULT 0.7 MG/DL (0.2-1.0)
[2017-02-02 17:12] LABS: HEMOGLOBIN A1a 1.2 %; HEMOGLOBIN A1b 0.7 %; HEMOGLOBIN Ao 82.4 %; HEMOGLOBIN F 1.4 %; HEMOGLOBIN LA1C 2.2 %; HEMOGLOBIN P3 4.3 %
== END ==
LOC: PLAB 08:22
PROVIDERS: ATTEND Internal Medicine Endocrinology, Diabetes & Metabolism
DX: E10.65 Type 1 diabetes mellitus with hyperglycemia (principal); E03.9 Hypothyroidism, unspecified; I48.91 Unspecified atrial fibrillation; E56.9 Vitamin deficiency, unspecified
CPT/HCPCS: 36415; 80053; 82043; 82248; 82306; 83036; 83735; 84100; 84439; 84443; 85025; 85610

== ENCOUNTER → 2017-02-04 | Outpatient (CLI) | payer MEDICARE ==
[2017-02-04 13:30] LABS: FREE T4 1.26 NG/DL (0.76-1.46)
== END ==
LOC: PLAB 09:33
PROVIDERS: ATTEND Internal Medicine Endocrinology, Diabetes & Metabolism
DX: E03.9 Hypothyroidism, unspecified (principal)
CPT/HCPCS: 36415; 84439; 84443

== ENCOUNTER → 2017-09-13 | Outpatient (CLI) | payer MEDICARE ==
[2017-09-13 10:24] LABS: HEMATOCRIT 36.9 % (35.0-46.0); HEMOGLOBIN 12.5 GM/DL (11.6-15.3); MEAN CORPUSCULAR HEMOGLOBIN 31.1 PG (27.0-34.0); MEAN CORPUSCULAR HGB CONC 33.8 % (32.0-36.0); MEAN PLATELET VOLUME 7.6 FL (7.0-11.0); PLATELET COUNT 187 TH/MM3 (150-450); RED BLOOD COUNT 4.01 MIL/MM3 (4.00-5.30); RED CELL DISTRIBUTION WIDTH 14.2 % (11.6-17.2)
[2017-09-13 10:53] LABS: ALBUMIN 3.8 GM/DL (3.4-5.0); AST (GOT) 17 U/L (15-37); BICARBONATE 27.8 MEQ/L (21.0-32.0); BLOOD UREA NITROGEN 16 MG/DL (7-18); CALCIUM 8.7 MG/DL (8.5-10.1); CHLORIDE 99 MEQ/L (98-107); CREATININE 0.78 MG/DL (0.50-1.00); GLOMERULAR FILTRATION RATE 72 ML/MIN (>89); GLUCOSE,FASTING 213 MG/DL (74-99); SODIUM (NA) 135 MEQ/L (136-145)
[2017-09-13 10:55] LABS: CHOLESTEROL 180 MG/DL (120-200); TRIGLYCERIDES 49 MG/DL (42-150)
[2017-09-13 10:58] LABS: ALKALINE PHOSPHATASE 116 U/L (45-117); ALT (GPT) 19 U/L (10-53); CHOLESTEROL/ HDL RATIO 1.87 RATIO; HDL CHOLESTEROL 96.1 MG/DL (40.0-60.0); LDL CHOLESTEROL 74 MG/DL (0-99); LDL CHOLESTEROL DIRECT 85 MG/DL (0-99); TOTAL BILIRUBIN ADULT 0.6 MG/DL (0.2-1.0)
[2017-09-13 17:41] LABS: HEMOGLOBIN A1C 7.9 % (4.3-6.0)
== END ==
LOC: PLAB 08:20
PROVIDERS: ATTEND Internal Medicine Endocrinology, Diabetes & Metabolism
DX: I48.91 Unspecified atrial fibrillation (principal); I10 Essential (primary) hypertension; E10.65 Type 1 diabetes mellitus with hyperglycemia; E56.9 Vitamin deficiency, unspecified
CPT/HCPCS: 36415; 80053; 80061; 82043; 82306; 83036; 83721; 85027